=== PATIENT | male | born 1940 | race Caucasian/White ===

== ENCOUNTER → 2017-07-18 10:55 | Outpatient (CLI) | payer MEDICARE, SELFPAY ==
[2017-07-18 12:55] LABS: ALB/GLOB Ratio 1.2 RATIO (0.9-2.4); AST(SGOT) 17 U/L (15-37); Alanine Aminotransfer ALT/SGPT 20 U/L (16-61); Albumin, Serum 3.8 g/dL (3.2-5.0); Alkaline Phosphatase 67 U/L (45-117); Anion Gap 8 (5-15); BUN 17 mg/dL (7-18); BUN/Creat Ratio 15.3 RATIO (10-20); Calcium,Total 8.7 mg/dL (8.5-10.1); Chloride 103 mmol/L (98-107); Cholesterol 168 mg/dL (200); Creatinine, Serum 1.11 mg/dL (0.70-1.30); EST Glomerular Filtration Rate 68 mL/min (>60); Est Glom Filt Rate - Afr Amer 83 mL/min (>60); Globulin 3.3 g/dL (2.2-4.2); Glucose 126 mg/dL (74-106); High Density Lipoprotein 67 mg/dL; Protein, Total 7.1 g/dL (6.4-8.2); Sodium Level 139 mmol/L (136-145); Thyroid Stim Hormone (TSH) 1.42 uIU/mL (0.358-3.74); Triglycerides 103 mg/dL; Very Low Density Lipoprotein 21 mg/dL (5-40)
== END ==
PROVIDERS: Family Provider Family Medicine; PCP Family Medicine; Visit Provider Family Medicine
DX: E11.9 Type 2 diabetes mellitus without complications (principal)
CPT/HCPCS: 36415; 80053; 80061; 84403; 84443

== ENCOUNTER → 2017-12-01 15:59 | Outpatient (CLI) | payer MEDICARE, SELFPAY ==
[2017-12-01 16:58] LABS: Absolute Lymphocyte Count 1.46 X10^3/ul (0.83-4.51); Absolute Neutrophil Count 5.5 X10^3/uL (2.0-7.7); Basophil# 0.03 X10^3/uL; Basophil% 0.4 % (0-1); Eosinophil# 0.07 X10^3/uL; Eosinophils% 0.9 % (0-5); Hematocrit 42.6 % (40-54); Lymphocyte # 1.46 X10^3/ul (4.0); Lymphocyte % 18.6 % (19-41); Mean Corp Hgb Conc 32.9 g/gl (32-36); Mean Corpuscular Hgb 31.4 pg (27.0-32.0); Mean Corpuscular Volume 95.5 fL (80-94); Monocyte# 0.72 X10^3/uL; Monocyte% 9.2 % (0-10); Neutrophil # 5.54 X10^3/uL (2.7-7.7); Neutrophil % 70.4 % (47-70); Platelet Count 175 K/mm3 (150-450); RBC Distribution Width CV 12.9 % (11.6-14.6); Red Blood Count 4.46 M/mm3 (4.6-6.2); White Blood Count 7.9 K/mm3 (4.4-11.0)
[2017-12-01 17:01] LABS: POSITIVE COUNT NO; POSITIVE DIFFERENTIAL NO; POSITIVE MORPHOLOGY NO
[2017-12-01 17:02] LABS: Anion Gap 7 (5-15); BUN 18 mg/dL (7-18); Calcium,Total 8.7 mg/dL (8.5-10.1); Chloride 105 mmol/L (98-107); EST Glomerular Filtration Rate 62 mL/min (>60); Est Glom Filt Rate - Afr Amer 75 mL/min (>60); Glucose 167 mg/dL (74-106); Potassium 4.6 mmol/L (3.5-5.1); Sodium Level 141 mmol/L (136-145)
== END ==
PROVIDERS: Family Provider Family Medicine; PCP Family Medicine; Visit Provider Family Medicine
DX: K57.92 Diverticulitis of intestine, part unspecified, without perforation or abscess without bleeding (principal)
CPT/HCPCS: 36415; 80048; 85025

== ENCOUNTER → 2017-12-01 16:15 | Outpatient (CLI) | payer MEDICARE, SELFPAY ==
--- NOTE | 2017-12-01 16:34 | CT_ITS ---
STUDY: CT ABDOMEN WITH CONTRAST REASON FOR EXAM: Male, 77 years old. Diverticulitis with abdominal pain x2 weeks RADIATION DOSAGE (If Supplied By Facility): CTDIvol = ( 15.43 ) mGy, DLP = ( 552.29 ) mGycm TECHNIQUE: Transaxial images were obtained post I.V. administration of 100 ml of Isovue 300 contrast, and with oral contrast. Sagittal and coronal images were reconstructed. Individualized dose optimization techniques were used for this CT. COMPARISON: None. FINDINGS: The visualized lung bases are unremarkable. The visualized portions of the heart are within normal limits. Normal liver. There are multiple gallstones. Normal spleen. Normal pancreas. Normal bilateral adrenal glands. Normal right kidney. Normal left kidney. Normal visualized stomach. Normal small intestine. Severe diverticulosis is noted however, there appears to be an area of acute diverticulitis with questionable focal/local perforation. No definitive abscess at this time. This is noted within the sigmoid colon. There is non-visualization of the appendix. There is diffuse atherosclerotic calcification of the abdominal aorta, without a demonstrated aneurysm. Normal inferior vena cava. Normal retroperitoneum. Markedly enlarged prostate. Normal abdominal wall. There are diffuse degenerative changes of the visualized lumbar spine. CT/Abdomen/Pelvis WITH Contrast IMPRESSION: Sigmoid diverticulitis with questionable focal perforation. No evidence of abscess. Otherwise, severe colonic diverticulosis is noted Electronically Signed: Levy Morillo DO at 18:58 EDT Tel , Service support ,
== END ==
PROVIDERS: Family Provider Family Medicine; PCP Family Medicine; Visit Provider Family Medicine
DX: K57.92 Diverticulitis of intestine, part unspecified, without perforation or abscess without bleeding (principal)
CPT/HCPCS: 36415; 74177; 80048; 85025; Q9967

== ENCOUNTER 2018-05-16 04:57 | Emergency (ER) | payer MEDICARE, SELFPAY ==
[2018-05-16 04:58] VITALS: BP 214/98; PULSE 56; PULSE 57; RESP 18; RESP 20; TEMP 36.7; O2SAT 98; BMI 24.2
--- NOTE | 2018-05-16 05:06 | ED.RN ---
rn called for ekg, no old ekgs in [facility]
--- NOTE | 2018-05-16 05:09 | RAD_ITS ---
HISTORY: CHEST PAIN EXAM: XR Chest 1 View: COMPARISON: CT abdomen and pelvis 12/01/2017 FINDINGS: EKG leads in place. Right postthoracotomy changes with right midlung tiny anastomotic marly and ipsilateral volume loss with mild elevation of the right hemidiaphragm. Right chest wall deformity, most likely postsurgical. With comparison to previous CT exam, elevation of the right hemidiaphragm is chronic. Normal heart size. No acute infiltrate seen. No vascular congestion or pleural effusion. No pneumothorax. RAD/Chest 1 View (Portable) IMPRESSION: 1. No pneumonia or acute disease identified. 2. Right postthoracotomy changes. Please correlate clinically. at 0640 Reported and signed by: Sal Barreto MD Electronically Signed: Sal Barreto, at 6:39 EST Tel , Service support ,
--- NOTE | 2018-05-16 05:09 | EKG12_ITS ---
Test Reason : GENERAL ILLNESS Blood Pressure : / mmHG Vent. Rate : 056 BPM Atrial Rate : 056 BPM P-R Int : 184 ms QRS Dur : 092 ms QT Int : 426 ms P-R-T Axes : 040 023 049 degrees QTc Int : 411 ms Sinus bradycardia Confirmed by EBONY ZAVALA, KAREY ([id number]), make up editor KAMINI VALLES ([id number] on 05/19/2018 3:31:59 PM Referred By: LORENA Confirmed By:KAREY BECK MD
--- NOTE | 2018-05-16 05:16 | ED.VISSUMM ---
- ER Visit Summary Date of Service: 05/16/18 Chief Complaint: Abdominal pain, nausea History of Present Illness: The patient is a 78 M with a 4-5-hour history of upper abdominal pain and nausea. He states the pain radiated around his sides it is now mostly in his back. He does report nausea but no vomiting. No diarrhea. He denies radiation of pain to his legs. He did take Pepto, famotidine, and ibuprofen prior to arrival. He denies fever but has had some chills this evening. Physical Examination: Blood pressure is 214/98, temperature 98.1, heart rate 56, respiratory rate 20, pulse ox 98% on room air. Patient sitting upright in bed no acute distress. Head neck examination is unremarkable. Heart is bradycardic and regular. Lungs sounds are clear. Abdomen is soft with no reproducible tenderness to palpation. Active bowel sounds are noted. Back examination was no reproducible tenderness. Extremity examination reveals equal pulses throughout. Test Results: EKG is sinus bradycardia 56 bpm with no sign of acute ischemia. Portable chest x-ray per my read reveals no acute findings. CBC reveals a white count of 13.4 with 86% neutrophils. Chemistry studies significant only for glucose of 229. LFTs and lipase normal. Troponin negative. D-dimer normal at 0.39. Emergency Department Course and Treatment: Patient was given morphine, Zofran, and IV fluids. On repeat evaluation pain is improved and he complains of only minimal back pain. CTA of the chest abdomen and pelvis was obtained. On my review it does appear the patient has multiple gallstones. Final report will be signed out to oncoming physician. Treatment Plan: [] Disposition: Pending CTA results Impression: Abdominal pain, improved This note was generated with [employer] dictation software. It may contain incorrect words, spelling, and punctuation that were not noted in review of the chart prior to signing ED Disposition - Plan for ED Patient: Chief Complaint: General Illness Referrals: Gino Contreras MD [Primary Care Provider] -
[2018-05-16] MEDS: Ondansetron 4 MG/2 ML Vial IV (05:30)
[2018-05-16] MEDS: Morphine 4 MG/ML Syringe IV (05:31)
[2018-05-16] MEDS: 0.9% Normal Saline 1,000 ML 15 ML IV (05:32)
[2018-05-16 05:40] LABS: Absolute Lymphocyte Count 1.24 X10^3/ul (0.83-4.51); Absolute Neutrophil Count 11.5 X10^3/uL (2.0-7.7); Basophil# 0.02 X10^3/uL; Basophil% 0.1 % (0-1); Eosinophil# 0.03 X10^3/uL; Eosinophils% 0.2 % (0-5); Hematocrit 43.3 % (40-54); Hemoglobin 14.5 g/dl (13.0-16.5); Lymphocyte # 1.24 X10^3/ul (4.0); Lymphocyte % 9.2 % (19-41); Mean Corp Hgb Conc 33.5 g/gl (32-36); Mean Corpuscular Hgb 31.5 pg (27.0-32.0); Mean Corpuscular Volume 94.1 fL (80-94); Mean Platelet Vol. 10.6 fl (6.2-12.0); Monocyte# 0.65 X10^3/uL; Monocyte% 4.8 % (0-10); Neutrophil # 11.46 X10^3/uL (2.7-7.7); Neutrophil % 85.6 % (47-70); POSITIVE COUNT NO; POSITIVE DIFFERENTIAL NO; POSITIVE MORPHOLOGY NO; Platelet Count 169 K/mm3 (150-450); RBC Distribution Width CV 12.4 % (11.6-14.6); RBC Distribution Width SD 42.3 fl (35.1-43.9); White Blood Count 13.4 K/mm3 (4.4-11.0)
[2018-05-16 06:06] LABS: D-Dimer Quantitative (DVT/PE) 0.39 FEU/ug/m (0.27-0.49)
[2018-05-16 06:14] LABS: AST(SGOT) 18 U/L (15-37); Alanine Aminotransfer ALT/SGPT 31 U/L (16-61); Alkaline Phosphatase 75 U/L (45-117); Anion Gap 11 (5-15); BUN 16 mg/dL (7-18); BUN/Creat Ratio 12.9 RATIO (10-20); Bilirubin, Direct 0.24 mg/dL (0.00-0.30); Calcium,Total 8.9 mg/dL (8.5-10.1); Chloride 102 mmol/L (98-107); Creatinine, Serum 1.24 mg/dL (0.70-1.30); EST Glomerular Filtration Rate 60 mL/min (>60); Est Glom Filt Rate - Afr Amer 72 mL/min (>60); Globulin 3.3 g/dL (2.2-4.2); Glucose 229 mg/dL (74-106); Lipase 363 U/L (73-393); Potassium 4.2 mmol/L (3.5-5.1); Protein, Total 7.3 g/dL (6.4-8.2); Sodium Level 141 mmol/L (136-145)
--- NOTE | 2018-05-16 06:29 | CT_ITS ---
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 A radiation dose optimization technique was used for this scan. IV Contrast dosage and agent: 100 cc Isovue-370 contrast Oral contrast: None. COMPARISON: 12/01/2017 FINDINGS: The gallbladder is overdistended and hydropic in appearance measuring 4.5 cm in diameter and shows numerous internal stones. No pericholecystic inflammatory changes identified and no biliary dilatation seen. CTA technique performed. The abdominal aorta is atherosclerotic and normal in caliber. Wide patency of the celiac, SMA and LORENA. Bilateral single renal arteries which are widely patent. The major abdominal organs were not specifically evaluated utilizing CTA technique. Allowing for this, the liver, spleen, and pancreas show no CT abnormality. The adrenal glands show no suspicious enlargement. No ascites or retroperitoneal lymphadenopathy. Bilateral renal excretion of contrast without hydronephrosis or suspicious renal lesion. Left renal parapelvic cysts. GI tract: No obstruction. Diverticulosis coli. Constipation. Pelvis: Moderate prostatic enlargement with the prostate gland measuring 5.[address]/CT ANGIO ABD&PEL W/O&W/DYE IMPRESSION: 1. Atherosclerotic abdominal aorta without aneurysm. No suspicious vessel occlusion. 2. Overdistended hydropic gallbladder with numerous gallstones. No biliary dilatation seen. Gallbladder distention is increased compared to the November 2017 exam. 3. Constipation pattern. Diverticulosis coli. 4. Moderate prostatic enlargement. Left renal parapelvic cysts. Individualized dose optimization techniques were used for this CT. at 0812 Reported and signed by: Sal Barreto MD N.B. : The above information has been verbally conveyed by Sal Barreto to SHRADDHA Marinelli, on 05/16/2018 08:22:16 (ET). Electronically Signed: Sal Barreto, at 8:11 EST Tel , Service support ,
--- NOTE | 2018-05-16 06:29 | CT_ITS ---
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 A radiation dose optimization technique was used for this scan. IV Contrast dosage and agent: 100 cc Isovue 370 contrast COMPARISON: Chest x-ray 05/16/2018 FINDINGS: The main, segmental, and visualized subsegmental pulmonary arteries show normal opacification and appearance. No PE. Thoracic aorta is normal in caliber without aneurysm or dissection. No pericardial effusion. Right mid lung postthoracotomy changes with tiny surgical anastomotic marly and ipsilateral volume loss. Chronic scarring with focal bronchiectasis within the right middle lobe. The lingular segment shows similar but smaller focal scarring with mild bronchiectasis. No central obstructing lesion seen. Mediastinal and right hilar calcified lymph nodes. No suspicious lymph node enlargement seen. No suspicious pulmonary lesion identified. No pleural effusion. Within the upper abdomen, overdistended gallbladder with numerous gallstones. Gallbladder measures 4.[address]/CTA Chest W/WO Contrast IMPRESSION: 1. No PE or thoracic aortic aneurysm. No acute chest disease. 2. Right postthoracotomy changes with ipsilateral volume loss. 3. Right middle lobe and lingular segment chronic appearing scarring with bronchiectasis. No suspicious lesion seen. 4. Old granulomatous disease. 5. Cholelithiasis with overdistended gallbladder. CT abdomen also to follow. Individualized dose optimization techniques were used for this CT. at 0753 Reported and signed by: Sal Barreto MD Electronically Signed: Sal Barreto, at 7:52 EST Tel , Service support ,
--- NOTE | 2018-05-16 07:09 | ED.DEP ---
ED Disposition - Plan for ED Patient: Disposition: Home or Assisted Living Chief Complaint: General Illness Instructions: ED Abdominal Pain Gallstone Poss Prescriptions: Ondansetron [Zofran Odt] 4 mg PO Q8H PRN PRN #10 tablet PRN Reason: Nausea Referrals: Gino Contreras MD [Primary Care Provider] - As Needed
--- NOTE | 2018-05-16 08:57 | ED.VISSUMM ---
- ER Visit Summary Date of Service: 05/16/18 Chief Complaint: [Addendum to initial dictation by Dr. Wheat] History of Present Illness: The patient is a 78 M [presented to the emergency department with pain in his abdomen and back. Care of patient turned over to me awaiting results of CAT scan chest and CAT scan abdomen and pelvis with IV contrast. Patient's CT chest showed no evidence of PE or dissection. Patient CT scan of the abdomen pelvis showed gallstones with hydrops of the gallbladder measuring 4.5 cm. Radiologist thought there might be some pericholecystic edema as well and could not rule out cholecystitis. On my examination patient really not having any pain on palpation of the right upper quadrant has a negative García sign. I did discuss case with Dr. Dyllan Chacko who is the surgeon on-call today. Patient was evaluated in the emergency department by Dr. Chacko. Patient at this point does not want to be admitted given that he is not having any abdominal pain and states that he will return back to the emergency department if the pain returns. Patient also advised to follow-up with Dr. Mckeon in the office.] Patient understands that I cannot rule out acute cholecystitis as the etiology of his pain. Patient understands that his symptoms could worsen with continued pain he could become septic from his gallbladder. Patient was offered admission by Dr. Chacko. Patient is refusing admission at this time. Physical Examination: [] Test Results: [] Emergency Department Course and Treatment: [] Treatment Plan: [] Disposition: [Discharged home in stable condition.] Impression: [Abdominal pain etiology uncertain Back pain-etiology uncertain] This note was generated with [employer] dictation software. It may contain incorrect words, spelling, and punctuation that were not noted in review of the chart prior to signing ED Disposition - Plan for ED Patient: Disposition: Home or Assisted Living Chief Complaint: General Illness Instructions: ED Abdominal Pain Gallstone Poss Prescriptions: Ondansetron [Zofran Odt] 4 mg PO Q8H PRN PRN #10 tablet PRN Reason: Nausea Referrals: Gino Contreras MD [Primary Care Provider] - As Needed
--- NOTE | 2018-05-16 09:15 | CON.PCM_ITS ---
Reason for Consult Date of Consultation: 05/16/18 History of Present Illness: The patient is a 78 year old M resulted with a complaint of severe diffuse abdominal pain. The patient ate a meal last night of potato salad and chicken. Later in the evening he noted upper abdominal pain in both his right and left upper abdomen which was relatively severe and constant in nature. As the night when he noted more pain boring through to his back. He denied true right upper quadrant pain. He denied similar episodes of pain in the past. He had a CT scan back in November which he was told he had mild diverticulitis. This demonstrated cholelithiasis that time. He presented to [facility] emergency department. He was found to have an elevated white blood cell count of 13 but otherwise normal liver enzymes. Due to the upper abdominal and pain through to his back he had a CT angiogram of the chest abdomen and pelvis. This demonstrated no true vascular abnormalities. The only abnormality that was noted were cholelithiasis and now a somewhat dilated gallbladder with questionable gallbladder wall edema. The patient received morphine in the ER. His pain resolved. He was noted not to have a García sign or true right upper quadrant tenderness by the emergency room physicians. I was consulted. Past Medical History Allergies No Known Allergies Allergy (Verified 05/16/18 05:01) Home Medications: Ambulatory Orders Medication Instructions Recorded Metoprolol Succinate [Toprol Xl] 50 mg PO DAILY 05/16/18 Ondansetron [Zofran Odt] 4 mg PO Q8H PRN PRN #10 tablet 05/16/18 Saxagliptin Hydrochloride [Onglyza] 5 mg PO DAILY 05/16/18 Simvastatin 10 mg PO QHS 05/16/18 Tadalafil [Cialis] 10 mg PO DAILY 05/16/18 Tamsulosin HCl [Flomax] 0.4 mg PO QHS 05/16/18 Surgical History: - - left lung biopsy Lives: Spouse/ Significant Other Smoking Status: Never smoker Alcohol: Rare Review of Systems Constitutional: Denies: Chills, Fever, Weight Change HEENT: Denies: Head Aches, Sinus Congestion, Sinus Drainage Cardiovascular: Denies: Chest Pain, Palpitations Respiratory: Denies: Cough, Shortness of breath at rest, Sputum production Gastrointestinal: Reports: Abdominal Pain. Denies: Nausea, Vomiting Genitourinary: Denies: Dysuria Musculoskeletal: Denies: Joint Pain, Joint Tenderness Skin: Denies: Rash, Wounds Neurological: Denies: Numbness, Tingling, Focal weakness Psychiatric: Denies: Anxiety, Depression, Homicidal Ideations, Suicidal Ideations Hematologic/ Lymphatic: Denies: Easy Bruising, Easy Bleeding - Physical Exam General: Alert, Oriented x3, Cooperative HEENT: Atraumatic, PERRLA, EOMI, Normocephalic Neck: Supple, No JVD, Negative Carotid Bruits Lungs: Clear to auscultation, Normal air movement Cardiovascular: Regular rate, No murmurs Abdomen: Bowel Sounds Present, Soft, Non Tender Extremities: No edema, Capillary Refill Less than 3 Seconds Skin: No rashes, No breakdown Musculoskeletal: No Tenderness to Palpation of Joints or Extremities Neurological: Cranial nerves II-XII grossly intact Psych/Mental Status: Normal Affect, Appropriate Vital Signs Temp Pulse Resp BP Pulse Ox 98.1 F 57 L 18 214/98 H 98 05/16/18 04:58 05/16/18 04:58 05/16/18 04:58 05/16/18 04:58 05/16/18 04:58 Oxygen Delivery Method Room Air Weight: 74.4 kg Body Mass Index (BMI) 24.2 Laboratory Tests Past 24 Hrs 05/16/18 05/16/18 05/16/18 05:10 05:10 05:10 WBC 13.4 H RBC 4.60 Hgb 14.5 Hct 43.3 MCV 94.1 H MCH 31.5 MCHC 33.5 RDW 12.4 RDW Differential 42.3 Plt Count 169 MPV 10.6 Immature Gran % (Auto) 0.100 Neut % (Auto) 85.6 H Lymph % (Auto) 9.2 L [place] % (Auto) 4.8 Eos % (Auto) 0.2 Baso % (Auto) 0.1 Absolute Neuts (auto) 11.5 H Absolute Lymphs (auto) 1.24 Total Counted Not Reportable D-Dimer Quant (PE/DVT) 0.39 Sodium 141 Potassium 4.2 Chloride 102 Carbon Dioxide 28.0 Anion Gap 11 BUN 16 Creatinine 1.24 Estim Creat Clear Calc 49.10 Est GFR (MDRD) Af Amer 72 Est GFR (MDRD) Non-Af 60 BUN/Creatinine Ratio 12.9 Glucose 229 H Calcium 8.9 Total Bilirubin 0.80 Direct Bilirubin 0.24 AST 18 ALT 31 Alkaline Phosphatase 75 Troponin I < 0.015 Total Protein 7.3 Albumin 4.0 Globulin 3.3 Lipase 363 Assessment/Plan abdominal pain, questionable biliary colic, cholelithiasis. The patient currently states he is without any pain and would like to be discharged to home. We discussed the options of admission with monitoring for recurrence of abdominal pain and rechecking his white blood cell count and laboratory studies in the morning. Again the patient preferred to be discharged home. He is instructed to return to emerge department if he has additional or recurring pain. Otherwise I plan to see my office in 2 days.
[2018-05-16 09:18] VITALS: BP 124/71; PULSE 68; RESP 15; O2SAT 98
== END 2018-05-16 09:20 | disposition home or self-care (01) ==
PROVIDERS: Emergency Provider Emergency Medicine; Family Provider Family Medicine; PCP Family Medicine
DX: R10.11 Right upper quadrant pain (principal); R10.12 Left upper quadrant pain; R11.0 Nausea; M54.9 Dorsalgia, unspecified; K80.20 Calculus of gallbladder without cholecystitis without obstruction; K82.8 Other specified diseases of gallbladder; Z87.19 Personal history of other diseases of the digestive system; Z79.899 Other long term (current) drug therapy
CPT/HCPCS: 71045; 71275; 74174; 80048; 80076; 83690; 84484; 85025; 85379; 93005; 96361; 96374; 96375; 99284; J7030; Q9967; A4216; J2405

== ENCOUNTER 2018-05-17 01:53 | Inpatient (IN) | payer MEDICARE, SELFPAY ==
[2018-05-16 04:58] VITALS: BMI 24.2
[2018-05-17] VITALS (13 sets, daily range): BP systolic 102–167; BP diastolic 52–68; PULSE 60–73; RESP 14–22; TEMP 36.5–37.8; O2SAT 91–98; BMI 24.7; BMI 23.8
[2018-05-17] MEDS: 0.9% Normal Saline 1,000 ML 150 ML IV (02:34)
[2018-05-17] MEDS: Morphine 4 MG/ML Syringe IV (02:34)
[2018-05-17] MEDS: Ondansetron 4 MG/2 ML Vial IV (02:35)
[2018-05-17 02:49] LABS: Absolute Lymphocyte Count 0.82 X10^3/ul (0.83-4.51); Absolute Neutrophil Count 15.4 X10^3/uL (2.0-7.7); Basophil# 0.02 X10^3/uL; Basophil% 0.1 % (0-1); Hematocrit 42.3 % (40-54); Hemoglobin 14.1 g/dl (13.0-16.5); Lymphocyte # 0.82 X10^3/ul (4.0); Lymphocyte % 4.5 % (19-41); Mean Corp Hgb Conc 33.3 g/gl (32-36); Mean Corpuscular Hgb 31.8 pg (27.0-32.0); Mean Corpuscular Volume 95.3 fL (80-94); Mean Platelet Vol. 10.6 fl (6.2-12.0); Monocyte# 1.75 X10^3/uL; Monocyte% 9.7 % (0-10); Neutrophil # 15.43 X10^3/uL (2.7-7.7); Neutrophil % 85.4 % (47-70); Platelet Count 155 K/mm3 (150-450); RBC Distribution Width CV 12.5 % (11.6-14.6); RBC Distribution Width SD 42.5 fl (35.1-43.9); Red Blood Count 4.44 M/mm3 (4.6-6.2); White Blood Count 18.1 K/mm3 (4.4-11.0)
[2018-05-17 02:50] LABS: Differential Indicated SCAN CRITERIA MET; POSITIVE COUNT NO; POSITIVE DIFFERENTIAL YES; POSITIVE MORPHOLOGY NO
[2018-05-17 02:59] LABS: AST(SGOT) 48 U/L (15-37); Alanine Aminotransfer ALT/SGPT 53 U/L (16-61); Albumin, Serum 3.6 g/dL (3.2-5.0); Alkaline Phosphatase 107 U/L (45-117); Anion Gap 8 (5-15); BUN 12 mg/dL (7-18); BUN/Creat Ratio 10.8 RATIO (10-20); Bilirubin, Direct 0.57 mg/dL (0.00-0.30); Calcium,Total 8.5 mg/dL (8.5-10.1); Chloride 101 mmol/L (98-107); Creatinine, Serum 1.11 mg/dL (0.70-1.30); EST Glomerular Filtration Rate 68 mL/min (>60); Est Glom Filt Rate - Afr Amer 82 mL/min (>60); Estimated Creatinine Clearance 54.85 ml/min; Globulin 3.1 g/dL (2.2-4.2); Glucose 242 mg/dL (74-106); Lipase 69 U/L (73-393); Potassium 4.4 mmol/L (3.5-5.1); Protein, Total 6.7 g/dL (6.4-8.2); Sodium Level 134 mmol/L (136-145)
--- NOTE | 2018-05-17 04:37 | ED.DCSUM_ITS ---
- ER Visit Summary Date of Service: 05/17/18 Chief Complaint: Abdominal pain History of Present Illness: The patient is a 78 M who was seen in the ED earlier yesterday for abdominal pain. He had multiple gallstones with borderline wall thickness. He was seen by Dr. Chacko and preferred discharge to home with close follow-up. Patient increased pain today and presented back to the emergency room. Past history is significant for diabetes, hypertension, high cholesterol. Physical Examination: Blood pressure is 167/60, otherwise vitals normal. Patient sitting upright in bed in no acute distress. Head neck examination is unremarkable. Heart is regular rate and rhythm. Lung sounds are clear. Abdomen is soft with tenderness in the right upper quadrant. No guarding or rebound at this time. Test Results: CBC today is 18.1 compared to a white count of 13.4 yesterday. Left shift is noted. Chemistry studies significant for glucose of 242. LFTs significant for total bili of 1.8 and a direct bili of 0.57. These values were normal yesterday. AST is mildly elevated at 48. Lipase is normal. Emergency Department Course and Treatment: Patient was given morphine, Zofran, and IV fluids. Dose of IV Zosyn was given. I spoke with Dr. Chacko who will be in to see the patient. Treatment Plan: [] Disposition: Admit Impression: Cholecystitis This note was generated with [employer] dictation software. It may contain incorrect words, spelling, and punctuation that were not noted in review of the chart prior to signing ED Disposition - Plan for ED Patient: Chief Complaint: Abd Pain Referrals: Gino Contreras MD [Primary Care Provider] -
--- NOTE | 2018-05-17 05:43 | HP.PCM_ITS ---
History of Present Illness Date of Admission: 05/17/18 The patient is a 78 year old M resulted with a complaint of severe diffuse abdom inal pain. The patient ate a meal last night of potato salad and chicken. Later in the evening he noted upper abdominal pain in both his right and left upper abdomen which was relatively severe and constant in nature. As the night when he noted more pain boring through to his back. He denied true right upper quadrant pain. He denied similar episodes of pain in the past. He had a CT scan back in November which he was told he had mild diverticulitis. This demonstrated cholelithiasis that time. He presented to [facility] emergency department. He was found to have an elevated white blood cell count of 13 but otherwise normal liver enzymes. Due to the upper abdominal and pain through to his back he had a CT angiogram of the chest abdomen and pelvis. This demonstrated no true vascular abnormalities. The only abnormality that was noted were cholelithiasis and now a somewhat dilated gallbladder with questionable gallbladder wall edema. The patient received morphine in the ER. His pain resolved. He was noted not to have a García sign or true right upper quadrant tenderness by the emergency room physicians. I was consulted. He presented to the ER yesterday but felt his pain had improved and wanted to go home. His pain worsened throughout the day and he returned, His WBC count is now 18 and his bili is mildly elevated Past Medical History Allergies No Known Allergies Allergy (Verified 05/16/18 05:01) Home Medications: Ambulatory Orders Medication Instructions Recorded Metoprolol Succinate [Toprol Xl] 50 mg PO DAILY 05/16/18 Saxagliptin Hydrochloride [Onglyza] 5 mg PO DAILY 05/16/18 Simvastatin 10 mg PO QHS 05/16/18 Tadalafil [Cialis] 10 mg PO DAILY 05/16/18 Tamsulosin HCl [Flomax] 0.4 mg PO QHS 05/16/18 Surgical History: - - left lung biopsy Smoking Status: Never smoker Review of Systems Constitutional: Denies: Chills, Fever, Weight Change HEENT: Denies: Head Aches, Sinus Congestion, Sinus Drainage Cardiovascular: Denies: Chest Pain, Palpitations Respiratory: Denies: Cough, Shortness of breath at rest, Sputum production Gastrointestinal: Reports: Abdominal Pain. Denies: Nausea, Vomiting Genitourinary: Denies: Dysuria Musculoskeletal: Denies: Joint Pain, Joint Tenderness Skin: Denies: Rash, Wounds Neurological: Denies: Numbness, Tingling, Focal weakness Psychiatric: Denies: Anxiety, Depression, Homicidal Ideations, Suicidal Ideations Hematologic/ Lymphatic: Denies: Easy Bruising, Easy Bleeding VTE Information - Inpt Only VTE Present on Admission: No VTE Mechan Device Prophylaxis: SCD's VTE Pharm Prophylaxis ordered?: No - Physical Exam General: Alert, Oriented x3, Cooperative Lungs: Clear to auscultation, Normal air movement Cardiovascular: Regular rate, No murmurs Abdomen: Bowel Sounds Present, Soft, Tender - RUQ, + garcía's sign Vital Signs Temp Pulse Resp BP Pulse Ox 97.8 F 65 18 139/59 H 93 05/17/18 01:54 05/17/18 04:15 05/17/18 04:15 05/17/18 04:15 05/17/18 04:15 Oxygen Delivery Method Room Air Weight: 75.9 kg Body Mass Index (BMI) 24.7 Laboratory Tests Past 24 Hrs 05/17/18 05/17/18 02:30 02:30 WBC 18.1 H RBC 4.44 L Hgb 14.1 Hct 42.3 MCV 95.3 H MCH 31.8 MCHC 33.3 RDW 12.5 RDW Differential 42.5 Plt Count 155 MPV 10.6 Immature Gran % (Auto) 0.300 Neut % (Auto) 85.4 H Lymph % (Auto) 4.5 L [place] % (Auto) 9.7 Eos % (Auto) 0.0 Baso % (Auto) 0.1 Absolute Neuts (auto) 15.4 H Absolute Lymphs (auto) 0.82 L Total Counted Not Reportable Diff Path Review May foll Sodium 134 L Potassium 4.4 Chloride 101 Carbon Dioxide 25.0 Anion Gap 8 BUN 12 Creatinine 1.11 Estim Creat Clear Calc 54.85 Est GFR (MDRD) Af Amer 82 Est GFR (MDRD) Non-Af 68 BUN/Creatinine Ratio 10.8 Glucose 242 H Calcium 8.5 Total Bilirubin 1.80 H Direct Bilirubin 0.57 H AST 48 H ALT 53 Alkaline Phosphatase 107 Total Protein 6.7 Albumin 3.6 Globulin 3.1 Lipase 69 L Assessment/Plan cholecystitis I will admit. NPO, IV fluids, Zosyn. I plan to perform a laparoscopic cholecystectomy with intraoperative choleangiogram. The risks, benefits, possible complications and alternatives were discussed. The patient consents to the surgical procedure.
[2018-05-17] MEDS: Lactated Ringers 1,000 ML 100 ML IV ×3 (06:55→18:46)
[2018-05-17] MEDS: Morphine 2 MG/ML Syringe IV ×2 (06:55→13:39)
[2018-05-17 07:36] LABS: Bedside Glucose 210 mg/dL (70-110)
--- NOTE | 2018-05-17 07:44 | EKG12_ITS ---
Test Reason : PREOP Blood Pressure : / mmHG Vent. Rate : 061 BPM Atrial Rate : 061 BPM P-R Int : 176 ms QRS Dur : 088 ms QT Int : 404 ms P-R-T Axes : 026 -05 003 degrees QTc Int : 406 ms Normal sinus rhythm Confirmed by EBONY ZAVALA, KAREY ([id number]), metropolitan editor KAMINI VALLES ([id number]) on 05/19/2018 3:43:46 PM Referred By: FRANCISCA Confirmed By:KAREY BECK MD
[2018-05-17 08:37] LABS: Hemoglobin A1c 7.7 % (4.2-6.3)
[2018-05-17 12:25] LABS: Bedside Glucose 197 mg/dL (70-110)
[2018-05-17] MEDS: Piperacil/Tazobactam 3.375 GM/50 ML ML IV ×2 (13:35→22:06)
[2018-05-17] MEDS: 0.9% NaCl Peripheral Flush Adult/Peds IV (13:35)
--- NOTE | 2018-05-17 14:46 | NURSING ---
pt transported down to at this time, report called to LUKE Alvarez
--- NOTE | 2018-05-17 15:05 | GALL_PTH ---
PATIENT: EDEL ISAAC LOC: MS3 U#:[id number] AGE/SX: 78/M ROOM: [facility] [place]17/[address]: Dr. Omkar Cee MD : [id number] BED: 1 DIS: 05/20/2018 SPEC #: [id number] RECD: 05/18/18 11:31 STATUS: NIGEL PIKE #: [id number] DAMIAN: 05/17/18 15:[address]: Dyllan Mckeon DEPT: SURGICAL PATHOLOGY RECD BY: Dyllan Butterfield ENTERED: 05/18/18 11:51 SP TYPE: DENISE HOUGH DR: Dr. Tyree Contreras MD Tissues: Gallbladder, NOS Procedures: Surgery Specimen Level III HEADER OPERATION: Laparoscopic cholecystectomy PRE-OP DIAGNOSIS: Acute cholecystitis TISSUE SUBMITTED: Gallbladder MICROSCOPIC DIAGNOSIS Gallbladder, cholecystectomy: Acute and chronic cholecystitis with mucosal ulceration and cholelithiasis. AM:moiz 05/19/18 MICROSCOPIC DESCRIPTION Slides are reviewed. GROSS DESCRIPTION Received is one container labeled with the patient's name and designated gallbladder. The specimen consists of a gallbladder measuring 1.2 x 5.3 x 3.6 cm. The external surface is smooth and glistening. Focally, it is granular, hemorrhagic and contains cautery artifact. The lumen of the gallbladder contains green mucoid bile and multiple black calculi ranging in size <0.1 to 1.2. The mucosa is bile-stained and without any mass lesions. The gallbladder wall averages 0.4 cm in thickness and is free of mass lesions. Cable Splicing Technician sections of the gallbladder and the cystic duct are submitted in one cassette. / AM:moiz 05/18/18 TC:2 [facility]: [id number]
[2018-05-17] MEDS: Bupivacaine 0.5% PF 10 ML VIAL (17:40)
--- NOTE | 2018-05-17 17:45 | OP.PCM_ITS ---
Report of Operation Date of Procedure: 05/17/18 Pre-Operative Diagnosis: acute cholycystitis Post-Operative Diagnosis: acute cholycystitis Surgery/Procedure Performed:: laparoscopic cholecystectomy oil well service operator helper: None oil well service operator helper: Heather Choi oil well service operator helper: Sandi Martell Type of Anesthesia:: General Anesthesiologist: Dwain Elaine - ASA2 Specimen's removed: gallbladder Estimated Blood Loss (mL): 50 Fluids Replaced: 700 Description of Procedure: The patient was brought to the operating suite. Sign in was performed verifying patient, site, position, patient was receiving Zosyn for presumed acute cholecystitis clinically. and DVT prophylaxis with SCDs. Following induction of general anesthetic. The patient?s abdomen was prepped and draped in the usual fashion. Timeout was performed verifying patient, site, position. Local anesthetic was injected below the umbilicus. Incision made and dissection carried down to the umbilical root fascia. 2 stay sutures were placed. Incision made in the fascia, the peritoneum entered under direct visualization. A 10 mm Murillo trocar was inserted and secured with the stay sutures. Pneumoperitoneum to 15 mmHg was insufflated. Visual inspection revealed acute adhesions to the gallbladder and a grossly distended gallbladder which appeared pale dusky and had some patchy areas of early duskiness consistent with advanced acute cholecystitis. 3 right upper quadrant 5 ports were placed in the standard position. the gallbladder had to be aspirated with an aspirating needle to allow it to be grasped. The gallbladder was grasped retracted upward and outward. Dissection was carried out in Calot?s triangle. When a critical view of the neck of the gallbladder funneling of the cystic duct with no signs of aberrant ductal structures were seen, a clip was placed on the neck of the gallbladder cystic duct junction. A partial ductotomy was made. No bile return from the partial ductotomy so intraoperative glandular gram was aborted. 2 clips placed on the cystic duct and the cystic duct divided. Dissection was continued until the cystic artery was clearly dissected and identified. The artery was then doubly clipped proximally singly clipped distally and divided. The gallbladder was then dissected free from the gallbladder fossa using electrocautery. the gallbladder dissection plane was acutely inflamed with significant edema and areas of duskiness consistent with advanced cholecystitis. The gallbladder was placed in an Endobag and removed through the umbilical port site, which had to be increased in size to remove the gallbladder. 2 - 0 PDS [id number] suture was placed around the umbilical port site defect. Pneumoperitoneum was reestablished. The gallbladder fossa was checked for hemostasis. With good hemostasis, the area was irrigated and aspirated to clear. 5mm ports were removed under direct visualization with no signs of bleeding. Pneumoperitoneum was released. The Murillo trocar was removed. The umbilical fascial suture was secured area did skin was closed with interrupted 4-0 Monocryl subcuticular sutures. Steri-Strips and bandages were applied. The patient was brought to recovery room in stable condition. - Admit VTE Documentation VTE Present on Admission: No VTE Mechan Device Prophylaxis: SCD's
[2018-05-17 18:15] LABS: Bedside Glucose 220 mg/dL (70-110)
[2018-05-17] MEDS: Metoprolol(XL)Succ 50 MG Tablet PO (21:59)
[2018-05-17] MEDS: Tamsulosin HCl 0.4 MG Capsule PO (22:00)
[2018-05-17] MEDS: Atorvastatin Calcium 10 MG Tablet 5 MG PO (22:00)
[2018-05-17 23:31] LABS: Bedside Glucose 197 mg/dL (70-110)
[2018-05-18] MEDS: Morphine 2 MG/ML Syringe IV ×5 (00:06→23:48)
[2018-05-18] MEDS: Insulin Lispro 100 UNIT/ML INSULN.PEN SC (01:17)
[2018-05-18 05:18] VITALS: BP 135/62; PULSE 63; RESP 14; TEMP 36.8; O2SAT 94
[2018-05-18] MEDS: Piperacil/Tazobactam 3.375 GM/50 ML ML IV ×3 (05:27→23:12)
[2018-05-18 06:18] LABS: ALB/GLOB Ratio 0.9 RATIO (0.9-2.4); AST(SGOT) 37 U/L (15-37); Alanine Aminotransfer ALT/SGPT 52 U/L (16-61); Albumin, Serum 3.1 g/dL (3.2-5.0); Alkaline Phosphatase 113 U/L (45-117); Anion Gap 8 (5-15); BUN 18 mg/dL (7-18); BUN/Creat Ratio 12.8 RATIO (10-20); Calcium,Total 8.6 mg/dL (8.5-10.1); Chloride 101 mmol/L (98-107); Creatinine, Serum 1.41 mg/dL (0.70-1.30); EST Glomerular Filtration Rate 52 mL/min (>60); Est Glom Filt Rate - Afr Amer 63 mL/min (>60); Estimated Creatinine Clearance 43.18 ml/min; Globulin 3.6 g/dL (2.2-4.2); Glucose 159 mg/dL (74-106); Protein, Total 6.7 g/dL (6.4-8.2); Sodium Level 136 mmol/L (136-145)
[2018-05-18 06:31] LABS: Bedside Glucose 165 mg/dL (70-110)
[2018-05-18 06:49] LABS: Hematocrit 41.8 % (40-54); Hemoglobin 13.6 g/dl (13.0-16.5); Mean Corp Hgb Conc 32.5 g/gl (32-36); Mean Corpuscular Hgb 32.2 pg (27.0-32.0); Mean Corpuscular Volume 98.8 fL (80-94); Platelet Count 156 K/mm3 (150-450); RBC Distribution Width CV 12.9 % (11.6-14.6); RBC Distribution Width SD 45.7 fl (35.1-43.9); Red Blood Count 4.23 M/mm3 (4.6-6.2); White Blood Count 20.8 K/mm3 (4.4-11.0)
[2018-05-18 06:53] LABS: Scan Indicated on CBC? Y/N NO
[2018-05-18 07:14] VITALS: O2SAT 93
--- NOTE | 2018-05-18 08:30 | RAD_ITS ---
STUDY: X-RAY CHEST REASON FOR EXAM: Male, 78 years old. TECHNIQUE: COMPARISON: May 16, 2018 FINDINGS: The heart is not enlarged there is still elevation of the right hemidiaphragm. There is Limited infiltrate and/or atelectasis seen in the left base with some linear atelectasis in the right midlung field. There is blunting of the costophrenic angles bilaterally. The apices are clear. The trachea is in the midline. The bony thorax is intact RAD/Chest PA and Lateral IMPRESSION: Limited infiltrate and atelectasis involving the left base and pleural effusion of minimal degree seen bilaterally. Postop changes seen in the right lung. . Electronically Signed: Judah Hwang, at 9:17 EST Tel , Service support ,
[2018-05-18 08:32] VITALS: BP 130/54; PULSE 60; RESP 18; TEMP 36.6; O2SAT 94
[2018-05-18] MEDS: Lactated Ringers 1,000 ML 100 ML IV ×2 (09:21→19:21)
[2018-05-18] MEDS: LINAGLIPTIN 5 MG TABLET PO ×2 (09:21→09:27)
[2018-05-18 11:31] LABS: Bedside Glucose 146 mg/dL (70-110)
--- NOTE | 2018-05-18 11:56 | PN.SURG_ITS ---
Subjective: incisional pain, - Physical Exam General: Alert, Oriented x3 Lungs: Diminished, - - few coarse breath sounds and wheezes Cardiovascular: Regular rate, Regular Rhythm Abdomen: Bowel Sounds Present, Soft, Tender - at incisions and mildly throughout Vital Signs Temp Pulse Resp BP Pulse Ox 97.8 F 60 18 130/54 H 94 05/18/18 08:32 05/18/18 08:32 05/18/18 08:32 05/18/18 08:32 05/18/18 08:32 Oxygen Flow Rate (L/min) 3 Oxygen Delivery Method Nasal Cannula Weight: 73 kg Body Mass Index (BMI) 23.8 Finger Stick Blood Glucose 220 Intake and Output for Last 24 Hours 05/16/18 05/17/18 05/18/18 23:59 23:59 23:59 Intake Total 2532 / 2532 1695 / 1695 Output Total 2039 / 2039 Balance 2532 / 2532 -345 / -345 Laboratory Tests Past 24 Hrs 05/18/18 05/18/18 05:30 05:30 WBC 20.8 H RBC 4.23 L Hgb 13.6 Hct 41.8 MCV 98.8 H MCH 32.2 H MCHC 32.5 RDW 12.9 RDW Differential 45.7 H Plt Count 156 MPV 11.0 Sodium 136 Potassium 4.0 Chloride 101 Carbon Dioxide 27.0 Anion Gap 8 BUN 18 Creatinine 1.41 H Estim Creat Clear Calc 43.18 Est GFR (MDRD) Af Amer 63 Est GFR (MDRD) Non-Af 52 L BUN/Creatinine Ratio 12.8 Glucose 159 H Calcium 8.6 Total Bilirubin 3.10 H AST 37 ALT 52 Alkaline Phosphatase 113 Total Protein 6.7 Albumin 3.1 L Globulin 3.6 Albumin/Globulin Ratio 0.9 POC Glucose 05/18/18 05/18/18 05/17/18 11:21 05:39 22:11 POC Glucose 146 H 165 H 197 H 05/17/18 05/17/18 18:10 12:10 POC Glucose 220 H 197 H Medical Necessity - Tobacco Use Smoking Status: Never smoker Assessment/Plan acute cholecystitis bordering on hydrops, gangrenous cholecystitis patient with increasingly elevated white blood cell count today and slightly increasing bilirubin with normal transaminases. We will continue IV antibiotics and repeat laboratory studies in the morning. no intraoperative clamps gram was obtained due to the degree of inflammation. If patient's bilirubin increases would consider HIDA scan or consideration for ERCP/MRCP Poor respiratory effort. Chest x-ray demonstrates some bilateral atelectasis. We will plan for increased pulmonary toilet, incentive spirometry use, and nebulizers to see if this improves his pulmonary toilet. History of diabetes-blood sugars in the 160-220 range. Currently on sliding sc kirit. Somewhat hypoactive bowel sounds. Given the degree of inflammation of the transverse colon and duodenal area from the inflammatory cholecystitis, would not be surprised if patient had a mild ileus-type picture. We will maintain clear liquids without advancing for the near being. patient required straight catheter 2 times for voiding. We'll plan to place Ross catheter of steak catheter required again.
[2018-05-18 14:03] VITALS: BP 153/64; PULSE 66; RESP 18; TEMP 36.7; O2SAT 95
[2018-05-18 14:19] LABS: Pathologist Review Reviewed
[2018-05-18] MEDS: 0.9% NaCl Peripheral Flush Adult/Peds IV ×3 (14:34→23:47)
[2018-05-18 17:46] LABS: Bedside Glucose 141 mg/dL (70-110)
[2018-05-18 20:09] VITALS: BP 175/72; PULSE 74; RESP 20; TEMP 36.9; O2SAT 97
[2018-05-18] MEDS: Atorvastatin Calcium 10 MG Tablet 5 MG PO (20:26)
[2018-05-18 20:27] VITALS: BP 175/72; PULSE 74
[2018-05-18] MEDS: Metoprolol(XL)Succ 50 MG Tablet PO (20:27)
[2018-05-18] MEDS: Tamsulosin HCl 0.4 MG Capsule PO (23:11)
[2018-05-18 23:35] LABS: Bedside Glucose 127 mg/dL (70-110)
[2018-05-19] VITALS (11 sets, daily range): BP systolic 132–190; BP diastolic 57–85; PULSE 60–79; RESP 18–20; TEMP 36.8–37; O2SAT 93–97
[2018-05-19] MEDS: Ondansetron 4 MG/2 ML Vial IV ×2 (04:48→12:36)
[2018-05-19] MEDS: Lactated Ringers 1,000 ML 100 ML IV (04:52)
[2018-05-19] MEDS: hydrALAZINE 20 MG/ML Vial 10 MG IV (05:19)
[2018-05-19] MEDS: 0.9% NaCl Peripheral Flush Adult/Peds IV ×3 (05:22→12:38)
--- NOTE | 2018-05-19 05:47 | NURSING ---
cargo supervisor taking pt off floor for CXR
--- NOTE | 2018-05-19 06:00 | RAD_ITS ---
HISTORY: SOB EXAM: XR Chest 2 Views: COMPARISON: 05/18/2018 FINDINGS: Small bilateral pleural effusions, larger on the right without change compared to 05/18/2018 and new compared to 05/16/2018. Bibasilar edema or infiltrates unchanged compared to 05/18/2018 and new compared to 05/16/2018. Right postthoracotomy changes with ipsilateral volume loss. Normal heart size. No pneumothorax. RAD/Chest PA and Lateral IMPRESSION: 1. Persistent small bilateral pleural effusions, larger on the right, together with by basilar infiltrates or edema without significant change compared to the most recent exam. 2. Bilateral effusions and bibasilar infiltrates/edema are new compared to the 05/16/2018 exam. at 0630 Reported and signed by: Sal Barreto MD Electronically Signed: Sal Barreto, at 6:28 EST Tel , Service support ,
--- NOTE | 2018-05-19 06:11 | NURSING ---
Pt back to floor from geetha, Dr. Mckeon in room.
[2018-05-19] MEDS: Piperacil/Tazobactam 3.375 GM/50 ML ML IV ×3 (06:39→21:15)
--- NOTE | 2018-05-19 06:45 | PCM.PN.HOSP ---
Subjective: Internal medicine consult note Patient is a 78-year-old male with a significant history of hypertension; diabetes mellitus; hyperlipidemia and erectile dysfunction who presented at the emergency department on 05/17/2018 because of abdominal pain and was diagnosed with cholecystitis for which he had a cholecystectomy on same day and now with uncontrolled blood pressure for which reason general surgery consulted internal medicine service for management. At home patient takes metoprolol 50 mg p.o. nightly. Patient reported that at home his systolic blood pressure range from 120-140. And his diastolic blood pressure went from 55-75. At the time of evaluation patient reported feeling lousy. Earlier on nurse had requested antianxiety medication to make patient more relax since patient appeared to feel uneasy. Further patient's nurse reported that patient has shortness of breath with exertion. She reported that on 2 L when patient ambulate his oxygen saturation dropped to 70 to 75% while on 2Lnc. However in bed and on 2 L of nasal cannula his oxygen saturation was 96%. Before the patient was seen by me General Surgery had ordered a chest x-ray. Patient had just returned from radiology for the chest x-ray at the time of my examination. Social history: Patient lives at home with his spouse. He is a never smoker. He consumes about a glass of wine every day. Surgical history: On this admission he had a cholecystectomy. Also he reports lung surgery to remove a spot on his lungs. Family history: His dad had lung cancer. His mom from pneumonia. Patient believed that his mom had lung disease because of secondhand smoking from patient's father. Vitals/I&O's: Vital Signs Temp Pulse Resp BP Pulse Ox 98.5 F 79 18 167/72 H 96 05/19/18 06:32 05/19/18 05:41 05/19/18 04:17 05/19/18 05:41 05/19/18 04:17 Oxygen Flow Rate (L/min) 2 Oxygen Delivery Method Nasal Cannula Weight: 73 kg Body Mass Index (BMI) 23.8 Finger Stick Blood Glucose 220 Intake and Output for Last 24 Hours 05/17/18 05/18/18 05/19/18 23:59 23:59 23:59 Intake Total 2532 / 2532 2726 / 2726 1849.8 / 1849.8 Output Total 2890 / 2890 1075 / 1075 Balance 2532 / 2532 -164 / -164 774.8 / 774.8 General: Alert, Oriented x3, Cooperative HEENT: Atraumatic, PERRLA, EOMI, Normocephalic Neck: Supple, No JVD, Negative Carotid Bruits Lungs: Rales - Bibasilar, Tachypneic Cardiovascular: Regular rate, No murmurs Abdomen: Bowel Sounds Present, Soft, Non Tender Extremities: No edema, Capillary Refill Less than 3 Seconds Skin: No rashes, No breakdown Musculoskeletal: No Tenderness to Palpation of Joints or Extremities Neurological: Neuro grossly intact Psych/Mental Status: Normal Affect, Appropriate Laboratory Results 05/17/18 02:30: Diff Path Review Reviewed 05/18/18 05:30: WBC 20.8 H, RBC 4.23 L, Hgb 13.6, Hct 41.8, MCV 98.8 H, MCH 32.2 H, MCHC 32.5, RDW 12.9, RDW Differential 45.7 H, Plt Count 156, MPV 11.0 05/18/18 11:21: POC Glucose 146 H 05/18/18 17:16: POC Glucose 141 H 05/18/18 23:11: POC Glucose 127 H Current Medications Albuterol Sulfate (Ventolin Aerosols) 2.5 mg INHALATION Q2H PRN PRN PRN Reason: WHEEZING Atorvastatin Calcium (Lipitor) 5 mg PO QHS [facility] Last Admin: 05/18/18 20:26 Dose: 5 mg Hydralazine HCl (Apresoline Iv) 10 mg IV Q4H PRN PRN PRN Reason: SBP >160 Last Admin: 05/19/18 05:19 Dose: 10 mg Piperacillin Sod/Tazobactam Sod (Zosyn) 3.375 gm in 50 mls @ 12.5 mls/hr IV Q8 [facility] Last Admin: 05/19/18 06:39 Dose: 12.5 mls/hr Insulin Human Lispro (Humalog Kwikpen (Bkc)) 0 unit SC TIDAC [facility]; Protocol Last Admin: 05/18/18 17:30 Dose: Not Given Linagliptin (Tradjenta) 5 mg PO DAILY [facility] Last Admin: 05/18/18 09:27 Dose: 5 mg Lorazepam (Ativan) 0.5 mg PO X1 ONE Stop: 05/19/18 06:35 Metoprolol Succinate (Toprol Xl (Beta Reid)) 50 mg PO DAILY@2200 [facility] Last Admin: 05/18/18 20:27 Dose: 50 mg Morphine Sulfate () 1 - 3 mg IV Q1H PRN PRN PRN Reason: SEVERE PAIN (6-10/10) Last Admin: 05/18/18 23:48 Dose: 2 mg Ondansetron HCl (Zofran) 4 mg IV Q6H PRN PRN PRN Reason: NAUSEA Last Admin: 05/19/18 04:48 Dose: 4 mg Sodium Chloride () 5 - 15 ml IV UD PRN PRN Reason: SALINE FLUSH Last Admin: 05/19/18 06:39 Dose: 10 ml Tamsulosin HCl (Flomax) 0.4 mg PO QHS [facility] Last Admin: 05/18/18 23:11 Dose: 0.4 mg Medical Necessity - Tobacco Use Smoking Status: Never smoker Assessment/Plan Patient is a 78-year-old male with a significant history of hypertension; diabetes mellitus; hyperlipidemia and erectile dysfunction who presented at the emergency department on 05/17/2018 because of abdominal pain and was diagnosed with cholecystitis for which he had a cholecystectomy on same day and now with uncontrolled blood pressure for which reason general surgery consulted internal medicine service for management; and also patient has dyspnea and hypoxemia with mild exertion; and appears anxious. Acute hypoxemic respiratory failure. Differential diagnosis include a postoperative atelectasis or heart failure [place] (unspecified preserved or reduced closed ( X-ray today, 05/19/2018 showed small bilateral pleural effusions, larger on the right with no change compared to 05/18/2018 and new compared with 05/16/2018. Bibasilar edema or infiltrates unchanged compared to 05/18/2018 and new compared to 05/16/2018. Also it showed right post thoracotomy changes with ipsilateral volume loss normal heart size and no pneumothorax. Maintenance IV infusion has been discontinued We will give IV Lasix 40 mg x1 now. Assess for further need of diuretics. Echocardiogram ordered. Patient is on Zosyn that was started on 05/17/2018 perioperatively. Patient has no fever. However he had a leukocytosis of 20.8 on 05/18/2018. Repeat WBC is pending. His white count could be from his cholecystitis. Patient already had cholecystectomy. It does not appear the patient has a pneumonia. Recommend discontinuing Zosyn within the next 24 hours if clinical suspicion of pneumonia remains low. Okay to continue as needed albuterol Uncontrolled hypertension Highest systolic blood pressure 190; higher diastolic blood pressure 73 We will add hydralazine as needed for systolic blood pressure more than 160. Continue home metoprolol. Likely his blood pressure is increasing because of anxiety after surgery and being in the hospital settings. Trend blood pressures and adjust blood pressure medication as necessary. Anxiety Ativan 0.5 mg x1 ordered. Diabetes mellitus Blood glucose is fairly controlled on his current regimen. Continue current regimen of Tradjenta and correction scale insulin. Patient is on metformin and saxagliptin hydrochloride at home. This was continued on admission. Will not continue it at this time we are to figure out the cause of his acute hypoxemic respiratory failure. Hyperlipidemia Lipitor continued DVT prophylaxis Subcutaneous heparin ordered Code Visit Inpatient E&M: 76064 Subs Hosp L3
[2018-05-19] MEDS: Insulin Lispro 100 UNIT/ML INSULN.PEN SC ×2 (06:48→16:35)
[2018-05-19] MEDS: LORazepam 0.5 MG Tablet PO (06:51)
--- NOTE | 2018-05-19 06:58 | ECHOD_ITS ---
Reason For Study: Dyspnea/SOB Procedure This was a 2D Doppler, Color Flow transthoracic echocardiogram. The exam was of adequate technical quality. Exam performed portable in patient room. Left Ventricle Normal LV size. Left ventricular systolic function is normal. The estimated ejection fraction is 65 %. Diastolic function is indeterminate. No regional wall motion abnormalities noted. Right Ventricle Normal RV size. Normal systolic function. Atria Normal left atrium. Normal right atrium. No doppler evidence for ASD. Bubble contrast study negative for right to left interatrial shunt. Mitral Valve There is no mitral annular calcification. Normal mitral valve. Mild (1+) mitral valve insufficiency. Tricuspid Valve Normal tricuspid valve. Trivial tricuspid valve insufficiency. Right ventricular systolic pressure estimated to be 34 mmHg. Aortic Valve Trisinus/trileaflet aortic valve. Mild diffuse aortic valve thickening. Pulmonic Valve The pulmonic valve is not well visualized. Great Vessels Normal sized aortic root. Pericardium/Pleural No pericardial effusion. Medication Performed a rapid injection of agitated mix of 9 cc saline and 1cc air to assess for atrial septal defect. MMode/2D Measurements & Calculations LVIDd: 4.9 cm IVSd: 1.2 cm Ao root diam: 3.1 cm LVIDs: 3.1 cm LVPWd: 1.1 cm RVDd: 3.4 cm FS: 37.5 % LAV(MOD-bp): 36.4 ml LVAd ap4: 30.3 cm2 SV(MOD-sp4): 67.1 ml LAV(MOD-bp) Indexed: 19.3 ml/m2 EDV(MOD-sp4): 93.9 ml LAV(MOD-sp2): 44.6 ml EDV(sp4-el): 96.2 ml LAV(MOD-sp4): 24.0 ml LVAs ap4: 14.4 cm2 ESV(MOD-sp4): 26.8 ml ESV(sp4-el): 26.5 ml EF(MOD-sp4): 71.4 % EF(sp4-el): 72.5 % SV(sp4-el): 69.7 ml LA A4 area: 11.0 cm2 LA dimension(2D): 4.0 cm RA A4 area: 7.7 cm2 Doppler Measurements & Calculations MV E max jorge l: 75.0 cm/sec Lat Peak E' Jorge L: 7.7 cm/sec Med Peak E' Jorge L: 6.0 cm/sec MV A max jorge l: 94.4 cm/sec E/E' lat: 9.8 E/E' med: 12.5 MV E/A: 0.79 Ao V2 max: 176.3 cm/sec LV V1 max: 124.2 cm/sec PA V2 max: 136.6 cm/sec Ao max P.4 mmHg LV V1 max P.2 mmHg Ao V2 mean: 121.7 cm/sec Ao mean P.5 mmHg Ao V2 VTI: 38.0 cm TR max jorge l: 277.7 cm/sec TR max P.8 mmHg Interpretation Summary Left ventricular systolic function is normal. The estimated ejection fraction is 65 %. Mild (1+) mitral valve insufficiency. Trivial tricuspid valve insufficiency. Mild diffuse aortic valve thickening. Right ventricular systolic pressure estimated to be 34 mmHg. Diastolic function is indeterminate. Ordering Physician: Merritt Olivia Referring Physician: Tyree Contreras Performed By: Kelli Victor, JUDIT, RVT
--- NOTE | 2018-05-19 06:59 | PN_ITS ---
Subjective: Internal medicine consult note Patient is a 78-year-old male with a significant history of hypertension; diabetes mellitus; hyperlipidemia and erectile dysfunction who presented at the emergency department on 05/17/2018 because of abdominal pain and was diagnosed with cholecystitis for which he had a cholecystectomy on same day and now with uncontrolled blood pressure for which reason general surgery consulted internal medicine service for management. At home patient takes metoprolol 50 mg p.o. nightly. Patient reported that at home his systolic blood pressure range from 120-140. And his diastolic blood pressure went from 55-75. At the time of evaluation patient reported feeling lousy. Earlier on nurse had requested antianxiety medication to make patient more relax since patient appeared to feel uneasy. Further patient's nurse reported that patient has shortness of breath with exertion. She reported that on 2 L when patient ambulate his oxygen saturation dropped to 70 to 75% while on 2Lnc. However in bed and on 2 L of nasal cannula his oxygen saturation was 96%. Before the patient was seen by me General Surgery had ordered a chest x-ray. Patient had just returned from radiology for the chest x-ray at the time of my examination. Social history: Patient lives at home with his spouse. He is a never smoker. He consumes about a glass of wine every day. Surgical history: On this admission he had a cholecystectomy. Also he reports lung surgery to remove a spot on his lungs. Family history: His dad had lung cancer. His mom from pneumonia. Patient believed that his mom had lung disease because of secondhand smoking from patient's father. Vitals/I&O's: Vital Signs Temp Pulse Resp BP Pulse Ox 98.5 F 79 18 167/72 H 96 05/19/18 06:32 05/19/18 05:41 05/19/18 04:17 05/19/18 05:41 05/19/18 04:17 Oxygen Flow Rate (L/min) 2 Oxygen Delivery Method Nasal Cannula Weight: 73 kg Body Mass Index (BMI) 23.8 Finger Stick Blood Glucose 220 Intake and Output for Last 24 Hours 05/17/18 05/18/18 05/19/18 23:59 23:59 23:59 Intake Total 2532 / 2532 2726 / 2726 1849.8 / 1849.8 Output Total 2890 / 2890 1075 / 1075 Balance 2532 / 2532 -164 / -164 774.8 / 774.8 General: Alert, Oriented x3, Cooperative HEENT: Atraumatic, PERRLA, EOMI, Normocephalic Neck: Supple, No JVD, Negative Carotid Bruits Lungs: Rales - Bibasilar, Tachypneic Cardiovascular: Regular rate, No murmurs Abdomen: Bowel Sounds Present, Soft, Non Tender Extremities: No edema, Capillary Refill Less than 3 Seconds Skin: No rashes, No breakdown Musculoskeletal: No Tenderness to Palpation of Joints or Extremities Neurological: Neuro grossly intact Psych/Mental Status: Normal Affect, Appropriate Laboratory Results 05/17/18 02:30: Diff Path Review Reviewed 05/18/18 05:30: WBC 20.8 H, RBC 4.23 L, Hgb 13.6, Hct 41.8, MCV 98.8 H, MCH 32.2 H, MCHC 32.5, RDW 12.9, RDW Differential 45.7 H, Plt Count 156, MPV 11.0 05/18/18 11:21: POC Glucose 146 H 05/18/18 17:16: POC Glucose 141 H 05/18/18 23:11: POC Glucose 127 H Current Medications Albuterol Sulfate (Ventolin Aerosols) 2.5 mg INHALATION Q2H PRN PRN PRN Reason: WHEEZING Atorvastatin Calcium (Lipitor) 5 mg PO QHS [facility] Last Admin: 05/18/18 20:26 Dose: 5 mg Hydralazine HCl (Apresoline Iv) 10 mg IV Q4H PRN PRN PRN Reason: SBP >160 Last Admin: 05/19/18 05:19 Dose: 10 mg Piperacillin Sod/Tazobactam Sod (Zosyn) 3.375 gm in 50 mls @ 12.5 mls/hr IV Q8 [facility] Last Admin: 05/19/18 06:39 Dose: 12.5 mls/hr Insulin Human Lispro (Humalog Kwikpen (Bkc)) 0 unit SC TIDAC [facility]; Protocol Last Admin: 05/18/18 17:30 Dose: Not Given Linagliptin (Tradjenta) 5 mg PO DAILY [facility] Last Admin: 05/18/18 09:27 Dose: 5 mg Lorazepam (Ativan) 0.5 mg PO X1 ONE Stop: 05/19/18 06:35 Metoprolol Succinate (Toprol Xl (Beta Reid)) 50 mg PO DAILY@2200 [facility] Last Admin: 05/18/18 20:27 Dose: 50 mg Morphine Sulfate () 1 - 3 mg IV Q1H PRN PRN PRN Reason: SEVERE PAIN (6-10/10) Last Admin: 05/18/18 23:48 Dose: 2 mg Ondansetron HCl (Zofran) 4 mg IV Q6H PRN PRN PRN Reason: NAUSEA Last Admin: 05/19/18 04:48 Dose: 4 mg Sodium Chloride () 5 - 15 ml IV UD PRN PRN Reason: SALINE FLUSH Last Admin: 05/19/18 06:39 Dose: 10 ml Tamsulosin HCl (Flomax) 0.4 mg PO QHS [facility] Last Admin: 05/18/18 23:11 Dose: 0.4 mg Medical Necessity - Tobacco Use Smoking Status: Never smoker Assessment/Plan Patient is a 78-year-old male with a significant history of hypertension; diabe sandro mellitus; hyperlipidemia and erectile dysfunction who presented at the emergency department on 05/17/2018 because of abdominal pain and was diagnosed with cholecystitis for which he had a cholecystectomy on same day and now with uncontrolled blood pressure for which reason general surgery consulted internal medicine service for management; and also patient has dyspnea and hypoxemia with mild exertion; and appears anxious. Acute hypoxemic respiratory failure. Differential diagnosis include a postoperative atelectasis or heart failure [place] (unspecified preserved or reduced closed ( X-ray today, 05/19/2018 showed small bilateral pleural effusions, larger on the right with no change compared to 05/18/2018 and new compared with 05/16/2018. Bibasilar edema or infiltrates unchanged compared to 05/18/2018 and new compared to 05/16/2018. Also it showed right post thoracotomy changes with ipsilateral volume loss normal heart size and no pneumothorax. Maintenance IV infusion has been discontinued We will give IV Lasix 40 mg x1 now. Assess for further need of diuretics. Echocardiogram ordered. Patient is on Zosyn that was started on 05/17/2018 perioperatively. Patient has no fever. However he had a leukocytosis of 20.8 on 05/18/2018. Repeat WBC is pending. His white count could be from his cholecystitis. Patient already had cholecystectomy. It does not appear the patient has a pneumonia. Recommend discontinuing Zosyn within the next 24 hours if clinical suspicion of pneumonia remains low. Okay to continue as needed albuterol Uncontrolled hypertension Highest systolic blood pressure 190; higher diastolic blood pressure 73 We will add hydralazine as needed for systolic blood pressure more than 160. Continue home metoprolol. Likely his blood pressure is increasing because of anxiety after surgery and being in the hospital settings. Trend blood pressures and adjust blood pressure medication as necessary. Anxiety Ativan 0.5 mg x1 ordered. Diabetes mellitus Blood glucose is fairly controlled on his current regimen. Continue current regimen of Tradjenta and correction scale insulin. Patient is on metformin and saxagliptin hydrochloride at home. This was continued on admission. Will not continue it at this time we are to figure out the cause of his acute hypoxemic respiratory failure. Hyperlipidemia Lipitor continued DVT prophylaxis Subcutaneous heparin ordered Code Visit Inpatient E&M: 55248 Subs Hosp L3
[2018-05-19 07:00] LABS: Bedside Glucose 162 mg/dL (70-110)
[2018-05-19] MEDS: Furosemide 40 MG/4 ML Vial IV (07:53)
[2018-05-19] MEDS: Heparin Injection (Vial) 5,000 UNIT/ML VIAL 5000 UNIT SC ×2 (07:56→21:16)
[2018-05-19 08:19] LABS: Absolute Lymphocyte Count 0.55 X10^3/ul (0.83-4.51); Absolute Neutrophil Count 12.7 X10^3/uL (2.0-7.7); Basophil# 0.02 X10^3/uL; Basophil% 0.1 % (0-1); Eosinophil# 0.03 X10^3/uL; Eosinophils% 0.2 % (0-5); Hematocrit 39.7 % (40-54); Hemoglobin 13.2 g/dl (13.0-16.5); Lymphocyte # 0.55 X10^3/ul (4.0); Lymphocyte % 3.9 % (19-41); Mean Corp Hgb Conc 33.2 g/gl (32-36); Mean Corpuscular Volume 96.1 fL (80-94); Mean Platelet Vol. 10.2 fl (6.2-12.0); Monocyte# 0.86 X10^3/uL; Neutrophil # 12.72 X10^3/uL (2.7-7.7); Neutrophil % 89.5 % (47-70); Platelet Count 170 K/mm3 (150-450); RBC Distribution Width CV 12.4 % (11.6-14.6); RBC Distribution Width SD 42.5 fl (35.1-43.9); Red Blood Count 4.13 M/mm3 (4.6-6.2); White Blood Count 14.2 K/mm3 (4.4-11.0)
[2018-05-19 08:20] LABS: Differential Indicated SCAN CRITERIA MET; POSITIVE COUNT NO; POSITIVE DIFFERENTIAL YES; POSITIVE MORPHOLOGY NO
[2018-05-19 08:37] LABS: ALB/GLOB Ratio 0.7 RATIO (0.9-2.4); AST(SGOT) 17 U/L (15-37); Alanine Aminotransfer ALT/SGPT 34 U/L (16-61); Albumin, Serum 2.6 g/dL (3.2-5.0); Alkaline Phosphatase 114 U/L (45-117); Anion Gap 6 (5-15); BUN 17 mg/dL (7-18); BUN/Creat Ratio 16.3 RATIO (10-20); Calcium,Total 8.4 mg/dL (8.5-10.1); Chloride 102 mmol/L (98-107); Creatinine, Serum 1.04 mg/dL (0.70-1.30); EST Glomerular Filtration Rate 73 mL/min (>60); Est Glom Filt Rate - Afr Amer 89 mL/min (>60); Estimated Creatinine Clearance 58.54 ml/min; Globulin 3.6 g/dL (2.2-4.2); Glucose 157 mg/dL (74-106); Protein, Total 6.2 g/dL (6.4-8.2); Sodium Level 136 mmol/L (136-145)
--- NOTE | 2018-05-19 10:35 | PN.SURG_ITS ---
Subjective: some SOB overnight - Physical Exam General: Alert, Oriented x3, Cooperative Lungs: Clear to auscultation, Diminished Cardiovascular: Regular rate, Regular Rhythm Abdomen: Soft, Non Tender - except at incisions, Hypoactive Bowel Sounds Vital Signs Temp Pulse Resp BP Pulse Ox 98.2 F 64 18 148/68 H 97 05/19/18 07:49 05/19/18 07:49 05/19/18 07:49 05/19/18 07:49 05/19/18 07:49 Oxygen Flow Rate (L/min) 2 Oxygen Delivery Method Nasal Cannula Weight: 73 kg Body Mass Index (BMI) 23.8 Finger Stick Blood Glucose 220 Intake and Output for Last 24 Hours 05/17/18 05/18/18 05/19/18 23:59 23:59 23:59 Intake Total 2532 / 2532 2726 / 2726 1996.8 / 1996. Output Total 2890 / 2890 3075 / 3075 Balance 2532 / 2532 -164 / -164 -1077.2 / -1077.2 Laboratory Tests Past 24 Hrs 05/17/18 05/19/18 05/19/18 02:30 07:57 07:57 WBC 14.2 H RBC 4.13 L Hgb 13.2 Hct 39.7 L MCV 96.1 H MCH 32.0 MCHC 33.2 RDW 12.4 RDW Differential 42.5 Plt Count 170 MPV 10.2 Immature Gran % (Auto) 0.300 Neut % (Auto) 89.5 H Lymph % (Auto) 3.9 L [place] % (Auto) 6.0 Eos % (Auto) 0.2 Baso % (Auto) 0.1 Absolute Neuts (auto) 12.7 H Absolute Lymphs (auto) 0.55 L Total Counted Not Reportable Diff Path Review Reviewed Sodium 136 Potassium 4.0 Chloride 102 Carbon Dioxide 28.0 Anion Gap 6 BUN 17 Creatinine 1.04 Estim Creat Clear Calc 58.54 Est GFR (MDRD) Af Amer 89 Est GFR (MDRD) Non-Af 73 BUN/Creatinine Ratio 16.3 Glucose 157 H Calcium 8.4 L Total Bilirubin 1.90 H AST 17 ALT 34 Alkaline Phosphatase 114 Total Protein 6.2 L Albumin 2.6 L Globulin 3.6 Albumin/Globulin Ratio 0.7 L POC Glucose 05/19/18 05/18/18 05/18/18 06:46 23:11 17:16 POC Glucose 162 H 127 H 141 H 05/18/18 11:21 POC Glucose 146 H Medical Necessity - Tobacco Use Smoking Status: Never smoker Assessment/Plan acute cholecystitis bordering on hydrops, gangrenous cholecystitis patient with normalizing white blood cell count today and normalizing bilirubin with normal transaminases. We will continue IV antibiotics and repeat laboratory studies in the morning. no intraoperative cholangiogram was obtained due to the degree of inflammation. Poor respiratory effort. Chest x-ray demonstrates stable bilateral atelectasis. We will plan for increased pulmonary toilet, incentive spirometry use, and nebulizers to see if this improves his pulmonary toilet. History of diabetes-blood sugars in the 160-220 range. Currently on sliding scale. Hypertensive overnight. Medicine on board to assist with management Somewhat hypoactive bowel sounds. Given the degree of inflammation of the transverse colon and duodenal area from the inflammatory cholecystitis, would not be surprised if patient had a mild ileus-type picture. We will maintain clear liquids without advancing for the near being. Ross catheter in place - adequate urine output
[2018-05-19 12:46] LABS: Bedside Glucose 134 mg/dL (70-110)
[2018-05-19] MEDS: Morphine 2 MG/ML Syringe IV (12:46)
--- NOTE | 2018-05-19 13:25 | CASEMGMT ---
LUKE MCDANIEL Face to Face with patient for initial transition planning/care coordination assessment. RN VIOLETA introduced self and role at [facility]. Patient lying in bed, alert and oriented. Patient willing to participate in assessment and is able to answer all questions appropriately. Care providers, pharmacy, and demographics verified. Patient wishes to discharge home, denies need for home health at this time. Patient states he has no further needs or concerns at this time. CM to follow for discharge planning needs that may arise. PCP: Ben Specialists: None [facility] [employer] [facility] Prescription Benefit: Yes Living Will/HPOA: None LNOK: Living Arrangements: Patient lives with in 2 story house with bed and bath on first floor. Patient independent at home. Transportation: self/ DME/HHC: Patient denies needs Disposition Plan: Patient to discharge home with family support and follow-up plans in place. Tabitha BROWN, RN, CM
[2018-05-19 16:56] LABS: Bedside Glucose 203 mg/dL (70-110)
[2018-05-19] MEDS: Atorvastatin Calcium 10 MG Tablet 5 MG PO (21:16)
[2018-05-19] MEDS: Metoprolol(XL)Succ 50 MG Tablet PO (21:16)
[2018-05-19] MEDS: Tamsulosin HCl 0.4 MG Capsule PO (21:16)
[2018-05-19 21:25] LABS: Bedside Glucose 134 mg/dL (70-110)
[2018-05-20 03:15] VITALS: BP 153/64; PULSE 64; RESP 18; TEMP 37.1; O2SAT 95
[2018-05-20] MEDS: Morphine 2 MG/ML Syringe IV (03:20)
[2018-05-20] MEDS: Piperacil/Tazobactam 3.375 GM/50 ML ML IV ×2 (06:17→14:55)
[2018-05-20 06:26] LABS: Bedside Glucose 126 mg/dL (70-110)
[2018-05-20 06:40] LABS: Absolute Lymphocyte Count 1.19 X10^3/ul (0.83-4.51); Absolute Neutrophil Count 6.1 X10^3/uL (2.0-7.7); Basophil# 0.02 X10^3/uL; Basophil% 0.2 % (0-1); Eosinophils% 2.4 % (0-5); Hematocrit 36.3 % (40-54); Hemoglobin 12.1 g/dl (13.0-16.5); Lymphocyte # 1.19 X10^3/ul (4.0); Lymphocyte % 14.1 % (19-41); Mean Corp Hgb Conc 33.3 g/gl (32-36); Mean Corpuscular Hgb 31.9 pg (27.0-32.0); Mean Corpuscular Volume 95.8 fL (80-94); Mean Platelet Vol. 10.5 fl (6.2-12.0); Monocyte# 0.92 X10^3/uL; Monocyte% 10.9 % (0-10); Neutrophil # 6.11 X10^3/uL (2.7-7.7); Neutrophil % 72.2 % (47-70); Platelet Count 179 K/mm3 (150-450); RBC Distribution Width CV 12.2 % (11.6-14.6); RBC Distribution Width SD 41.6 fl (35.1-43.9); Red Blood Count 3.79 M/mm3 (4.6-6.2); White Blood Count 8.5 K/mm3 (4.4-11.0)
[2018-05-20 06:46] LABS: POSITIVE COUNT NO; POSITIVE DIFFERENTIAL NO; POSITIVE MORPHOLOGY NO
[2018-05-20 07:01] LABS: ALB/GLOB Ratio 0.7 RATIO (0.9-2.4); AST(SGOT) 25 U/L (15-37); Alanine Aminotransfer ALT/SGPT 28 U/L (16-61); Albumin, Serum 2.3 g/dL (3.2-5.0); Alkaline Phosphatase 183 U/L (45-117); Anion Gap 7 (5-15); BUN 17 mg/dL (7-18); BUN/Creat Ratio 16.3 RATIO (10-20); Calcium,Total 7.9 mg/dL (8.5-10.1); Chloride 101 mmol/L (98-107); Creatinine, Serum 1.04 mg/dL (0.70-1.30); EST Glomerular Filtration Rate 73 mL/min (>60); Est Glom Filt Rate - Afr Amer 89 mL/min (>60); Estimated Creatinine Clearance 58.54 ml/min; Globulin 3.3 g/dL (2.2-4.2); Glucose 128 mg/dL (74-106); Potassium 3.3 mmol/L (3.5-5.1); Protein, Total 5.6 g/dL (6.4-8.2); Sodium Level 137 mmol/L (136-145)
[2018-05-20 08:23] VITALS: O2SAT 94
[2018-05-20] MEDS: LINAGLIPTIN 5 MG TABLET PO (09:50)
[2018-05-20] MEDS: Heparin Injection (Vial) 5,000 UNIT/ML VIAL 5000 UNIT SC (09:50)
[2018-05-20 10:04] VITALS: BP 166/64; PULSE 61; RESP 17; TEMP 37; O2SAT 94
--- NOTE | 2018-05-20 10:04 | PCM.PN.HOSP ---
Subjective: Doing well, pain is much improved. He is not short of breath and no chest pain. Drinking well does not have much of an appetite though. Vitals/I&O's: Vital Signs Temp Pulse Resp BP Pulse Ox 98.8 F 64 18 153/64 H 94 05/20/18 03:15 05/20/18 03:15 05/20/18 03:15 05/20/18 03:15 05/20/18 08:23 Oxygen Flow Rate (L/min) 2 Oxygen Delivery Method Room Air Weight: 160 lb 14.999 oz Body Mass Index (BMI) 23.8 Finger Stick Blood Glucose 220 Intake and Output for Last 24 Hours 05/18/18 05/19/18 05/20/18 23:59 23:59 23:59 Intake Total 2726 / 2726 2365.8 / 2365.8 356 / 356 Output Total 2890 / 2890 3975 / 3975 775 / 775 Balance -164 / -164 -1609.2 / -1609.2 -419 / -419 General: Alert, Oriented x3, Cooperative, No apparent distress HEENT: Atraumatic, EOMI, Normocephalic Oral: Moist Mucosa Neck: Supple, No JVD Lungs: Clear to auscultation, Normal air movement, No rhonchi, No wheeze, No rales Cardiovascular: Regular rate, Regular Rhythm, Normal S1, Normal S2, No murmurs Abdomen: Soft, Non-Distended, No Hepato-splenomegaly, Tender - Mild around the incisions Extremities: No edema, Capillary Refill Less than 3 Seconds Skin: No rashes, No breakdown Neurological: Neuro grossly intact, Sensory exam intact to light touch and pain Psych/Mental Status: Normal Affect, Appropriate Laboratory Results 05/19/18 12:35: POC Glucose 134 H 05/19/18 16:32: POC Glucose 203 H 05/19/18 21:20: POC Glucose 134 H 05/20/18 06:00: WBC 8.5, RBC 3.79 L, Hgb 12.1 L, Hct 36.3 L, MCV 95.8 H, MCH 31.9, MCHC 33.3, RDW 12.2, RDW Differential 41.6, Plt Count 179, MPV 10.5, Immature Gran % (Auto) 0.200, Neut % (Auto) 72.2 H, Lymph % (Auto) 14.1 L, [place] % (Auto) 10.9 H, Eos % (Auto) 2.4, Baso % (Auto) 0.2, Absolute Neuts (auto) 6.1, Absolute Lymphs (auto) 1.19, Total Counted Not Reportable 05/20/18 06:00: Sodium 137, Potassium 3.3 L, Chloride 101, Carbon Dioxide 29.0, Anion Gap 7, BUN 17, Creatinine 1.04, Estim Creat Clear Calc 58.54, Est GFR (MDRD) Af Amer 89, Est GFR (MDRD) Non-Af 73, BUN/Creatinine Ratio 16.3, Glucose 128 H, Calcium 7.9 L, Total Bilirubin 2.00 H, AST 25, ALT 28, Alkaline Phosphatase 183 H, Total Protein 5.6 L, Albumin 2.3 L, Globulin 3.3, Albumin/Globulin Ratio 0.7 L 05/20/18 06:20: POC Glucose 126 H Current Medications Albuterol Sulfate (Ventolin Aerosols) 2.5 mg INHALATION Q2H PRN PRN PRN Reason: WHEEZING Atorvastatin Calcium (Lipitor) 5 mg PO QHS [facility] Last Admin: 05/19/18 21:16 Dose: 5 mg Heparin Sodium (Porcine) (Heparin Na) 5,000 unit SC Q12 [facility] Last Admin: 05/20/18 09:50 Dose: 5,000 unit Hydralazine HCl (Apresoline Iv) 10 mg IV Q4H PRN PRN PRN Reason: SBP >160 Last Admin: 05/19/18 05:19 Dose: 10 mg Piperacillin Sod/Tazobactam Sod (Zosyn) 3.375 gm in 50 mls @ 12.5 mls/hr IV Q8 [facility] Last Admin: 05/20/18 06:17 Dose: 12.5 mls/hr Insulin Human Lispro (Humalog Kwikpen (Bkc)) 0 unit SC TIDAC [facility]; Protocol Last Admin: 05/20/18 06:20 Dose: Not Given Linagliptin (Tradjenta) 5 mg PO DAILY [facility] Last Admin: 05/20/18 09:50 Dose: 5 mg Lisinopril (Zestril) 10 mg PO DAILY [facility] Metoprolol Succinate (Toprol Xl (Beta Reid)) 50 mg PO DAILY@2200 [facility] Last Admin: 05/19/18 21:16 Dose: 50 mg Morphine Sulfate () 1 - 3 mg IV Q1H PRN PRN PRN Reason: SEVERE PAIN (6-10/10) Last Admin: 05/20/18 03:20 Dose: 2 mg Ondansetron HCl (Zofran) 4 mg IV Q6H PRN PRN PRN Reason: NAUSEA Last Admin: 05/19/18 12:36 Dose: 4 mg Sodium Chloride () 5 - 15 ml IV UD PRN PRN Reason: SALINE FLUSH Last Admin: 05/19/18 12:38 Dose: 10 ml Tamsulosin HCl (Flomax) 0.4 mg PO QHS [facility] Last Admin: 05/19/18 21:16 Dose: 0.4 mg Medical Necessity - Tobacco Use Smoking Status: Never smoker Assessment/Plan 1. Uncontrolled hypertension/acute hypoxic respiratory failure (resolved) -Pressure is much better under control after 40 mg of Lasix given yesterday. -Echo with 65% EF -Currently blood pressure is 153 systolic, given that he is a diabetic will add 10 mg of lisinopril today which she should be discharged on and have PCP follow-up. -oxygenation is great on room air. -Leukocytosis is resolved -Okay for discharge from medicine point of view 2. Cholecystitis -Postop day 3 from laparoscopic cholecystectomy -Gallbladder was gangrenous and there is significant inflammation in the abdomen. -This is likely what led to shallow breathing and splinting leading to a shortness of breath. -Doing much better today and is on Zosyn -Remove his Ross this morning and he ambulated around the nurse's station 3. DM 2 -Blood sugars are controlled as an outpatient -Continue with Tradjenta, metformin, saxagliptin at home 5. Hyperlipidemia -Stable -Continue with Lipitor DVT: Heparin Code Visit Inpatient E&M: 83081 Subs Hosp L2
--- NOTE | 2018-05-20 10:14 | PN_ITS ---
Subjective: Doing well, pain is much improved. He is not short of breath and no chest pain. Drinking well does not have much of an appetite though. Vitals/I&O's: Vital Signs Temp Pulse Resp BP Pulse Ox 98.8 F 64 18 153/64 H 94 05/20/18 03:15 05/20/18 03:15 05/20/18 03:15 05/20/18 03:15 05/20/18 08:23 Oxygen Flow Rate (L/min) 2 Oxygen Delivery Method Room Air Weight: 160 lb 14.999 oz Body Mass Index (BMI) 23.8 Finger Stick Blood Glucose 220 Intake and Output for Last 24 Hours 05/18/18 05/19/18 05/20/18 23:59 23:59 23:59 Intake Total 2726 / 2726 2365.8 / 2365.8 356 / 356 Output Total 2890 / 2890 3975 / 3975 775 / 775 Balance -164 / -164 -1609.2 / -1609.2 -419 / -419 General: Alert, Oriented x3, Cooperative, No apparent distress HEENT: Atraumatic, EOMI, Normocephalic Oral: Moist Mucosa Neck: Supple, No JVD Lungs: Clear to auscultation, Normal air movement, No rhonchi, No wheeze, No rales Cardiovascular: Regular rate, Regular Rhythm, Normal S1, Normal S2, No murmurs Abdomen: Soft, Non-Distended, No Hepato-splenomegaly, Tender - Mild around the incisions Extremities: No edema, Capillary Refill Less than 3 Seconds Skin: No rashes, No breakdown Neurological: Neuro grossly intact, Sensory exam intact to light touch and pain Psych/Mental Status: Normal Affect, Appropriate Laboratory Results 05/19/18 12:35: POC Glucose 134 H 05/19/18 16:32: POC Glucose 203 H 05/19/18 21:20: POC Glucose 134 H 05/20/18 06:00: WBC 8.5, RBC 3.79 L, Hgb 12.1 L, Hct 36.3 L, MCV 95.8 H, MCH 31.9, MCHC 33.3, RDW 12.2, RDW Differential 41.6, Plt Count 179, MPV 10.5, Immature Gran % (Auto) 0.200, Neut % (Auto) 72.2 H, Lymph % (Auto) 14.1 L, [place] % (Auto) 10.9 H, Eos % (Auto) 2.4, Baso % (Auto) 0.2, Absolute Neuts (auto) 6.1, Absolute Lymphs (auto) 1.19, Total Counted Not Reportable 05/20/18 06:00: Sodium 137, Potassium 3.3 L, Chloride 101, Carbon Dioxide 29.0, Anion Gap 7, BUN 17, Creatinine 1.04, Estim Creat Clear Calc 58.54, Est GFR (MDRD) Af Amer 89, Est GFR (MDRD) Non-Af 73, BUN/Creatinine Ratio 16.3, Glucose 128 H, Calcium 7.9 L, Total Bilirubin 2.00 H, AST 25, ALT 28, Alkaline Phosphatase 183 H, Total Protein 5.6 L, Albumin 2.3 L, Globulin 3.3, Albumin/Globulin Ratio 0.7 L 05/20/18 06:20: POC Glucose 126 H Current Medications Albuterol Sulfate (Ventolin Aerosols) 2.5 mg INHALATION Q2H PRN PRN PRN Reason: WHEEZING Atorvastatin Calcium (Lipitor) 5 mg PO QHS [facility] Last Admin: 05/19/18 21:16 Dose: 5 mg Heparin Sodium (Porcine) (Heparin Na) 5,000 unit SC Q12 [facility] Last Admin: 05/20/18 09:50 Dose: 5,000 unit Hydralazine HCl (Apresoline Iv) 10 mg IV Q4H PRN PRN PRN Reason: SBP >160 Last Admin: 05/19/18 05:19 Dose: 10 mg Piperacillin Sod/Tazobactam Sod (Zosyn) 3.375 gm in 50 mls @ 12.5 mls/hr IV Q8 [facility] Last Admin: 05/20/18 06:17 Dose: 12.5 mls/hr Insulin Human Lispro (Humalog Kwikpen (Bkc)) 0 unit SC TIDAC [facility]; Protocol Last Admin: 05/20/18 06:20 Dose: Not Given Linagliptin (Tradjenta) 5 mg PO DAILY [facility] Last Admin: 05/20/18 09:50 Dose: 5 mg Lisinopril (Zestril) 10 mg PO DAILY [facility] Metoprolol Succinate (Toprol Xl (Beta Reid)) 50 mg PO DAILY@2200 [facility] Last Admin: 05/19/18 21:16 Dose: 50 mg Morphine Sulfate () 1 - 3 mg IV Q1H PRN PRN PRN Reason: SEVERE PAIN (6-10/10) Last Admin: 05/20/18 03:20 Dose: 2 mg Ondansetron HCl (Zofran) 4 mg IV Q6H PRN PRN PRN Reason: NAUSEA Last Admin: 05/19/18 12:36 Dose: 4 mg Sodium Chloride () 5 - 15 ml IV UD PRN PRN Reason: SALINE FLUSH Last Admin: 05/19/18 12:38 Dose: 10 ml Tamsulosin HCl (Flomax) 0.4 mg PO QHS [facility] Last Admin: 05/19/18 21:16 Dose: 0.4 mg Medical Necessity - Tobacco Use Smoking Status: Never smoker Assessment/Plan 1. Uncontrolled hypertension/acute hypoxic respiratory failure (resolved) -Pressure is much better under control after 40 mg of Lasix given yesterday. -Echo with 65% EF -Currently blood pressure is 153 systolic, given that he is a diabetic will add 10 mg of lisinopril today which she should be discharged on and have PCP follow- up. -oxygenation is great on room air. -Leukocytosis is resolved -Okay for discharge from medicine point of view 2. Cholecystitis -Postop day 3 from laparoscopic cholecystectomy -Gallbladder was gangrenous and there is significant inflammation in the abdom en. -This is likely what led to shallow breathing and splinting leading to a shortness of breath. -Doing much better today and is on Zosyn -Remove his Ross this morning and he ambulated around the nurse's station 3. DM 2 -Blood sugars are controlled as an outpatient -Continue with Tradjenta, metformin, saxagliptin at home 5. Hyperlipidemia -Stable -Continue with Lipitor DVT: Heparin Code Visit Inpatient E&M: 43343 Subs Hosp L2
--- NOTE | 2018-05-20 10:33 | DCINST_ITS ---
Discharge Diet: No Restrictions - drink plenty of fluids Discharge Activity: Return to Normal Activity, May not drive while taking narcot ic pain medications. Lifting Restrictions: no lifting greater than 20 pounds for 2 weeks Call your doctor if your incision/area has: Continuous Slow Oozing, Foul Smelling Discharge Call your doctor if you observe: Fever of 101 or Higher Additional Dressing/Incision Instructions:: Leave dressings in place. May get wet in shower. Do not soak - no tub baths/swimming Allergies/Adverse Reactions: Allergies No Known Allergies Allergy (Verified 05/16/18 05:01) Medications to take at Discharge Metoprolol Succinate [Toprol Xl] 50 mg PO QHS 05/16/18 Saxagliptin Hydrochloride [Onglyza] 5 mg PO QHS 05/16/18 Simvastatin 10 mg PO QHS 05/16/18 Tamsulosin HCl [Flomax] 0.4 mg PO QHS 05/16/18 Cholecalciferol (Vitamin D3) [Vitamin D3] 1 cap PO QHS 05/17/18 Fish Oil/Dha/Epa [Fish Oil 1,200 mg Fish Oil] 1 cap PO QHS 05/17/18 Metformin(XR) [Glucophage Xr] 500 mg PO QHS 05/17/18 [place] Fruit [[place]] 4 cap PO QHS 05/17/18 Sildenafil Citrate [Sildenafil] 1 - 3 tab PO PRN 05/17/18 Sitagliptin Phosphate [Januvia] 5 mg PO QHS 05/17/18 Vitamin E Acetate [Vitamin E] 400 unit PO QHS 05/17/18 Hydrocodone/Acetaminophen [[place] 5-325 Tablet] 1 ea PO Q8H PRN PRN 5 Days #15 tab 05/20/18 The following prescriptions were given: Hydrocodone/Acetaminophen [[place] 5-325 Tablet] 1 ea PO Q8H PRN PRN 5 Days #15 tab PRN Reason: Pain Primary Care Physician: Gino Contreras MD [Primary Care Provider] - Test Results: Test results from this visit will be discussed in further detail at your follow- up appointment, if applicable. Please Follow Up With: Dyllan Mckeon MD - call When: to be seen this week, please call for date and time, thank you
--- NOTE | 2018-05-20 10:46 | PN.SURG_ITS ---
Subjective: Patient feeling well Passing flatus Tolerating liquids - Physical Exam General: Alert, Oriented x3 Oral: Moist Mucosa Neck: Supple Lungs: Normal air movement Abdomen: Bowel Sounds Present, Soft Vital Signs Temp Pulse Resp BP Pulse Ox 98.6 F 61 17 166/64 H 94 05/20/18 10:04 05/20/18 10:04 05/20/18 10:04 05/20/18 10:04 05/20/18 10:04 Oxygen Flow Rate (L/min) 2 Oxygen Delivery Method Room Air Weight: 73 kg Body Mass Index (BMI) 23.8 Finger Stick Blood Glucose 220 Intake and Output for Last 24 Hours 05/18/18 05/19/18 05/20/18 23:59 23:59 23:59 Intake Total 2726 / 2726 2365.8 / 2365.8 356 / 356 Output Total 2890 / 2890 3975 / 3975 775 / 775 Balance -164 / -164 -1609.2 / -1609.2 -419 / -419 Laboratory Tests Past 24 Hrs 05/20/18 05/20/18 06:00 06:00 WBC 8.5 RBC 3.79 L Hgb 12.1 L Hct 36.3 L MCV 95.8 H MCH 31.9 MCHC 33.3 RDW 12.2 RDW Differential 41.6 Plt Count 179 MPV 10.5 Immature Gran % (Auto) 0.200 Neut % (Auto) 72.2 H Lymph % (Auto) 14.1 L [place] % (Auto) 10.9 H Eos % (Auto) 2.4 Baso % (Auto) 0.2 Absolute Neuts (auto) 6.1 Absolute Lymphs (auto) 1.19 Total Counted Not Reportable Sodium 137 Potassium 3.3 L Chloride 101 Carbon Dioxide 29.0 Anion Gap 7 BUN 17 Creatinine 1.04 Estim Creat Clear Calc 58.54 Est GFR (MDRD) Af Amer 89 Est GFR (MDRD) Non-Af 73 BUN/Creatinine Ratio 16.3 Glucose 128 H Calcium 7.9 L Total Bilirubin 2.00 H AST 25 ALT 28 Alkaline Phosphatase 183 H Total Protein 5.6 L Albumin 2.3 L Globulin 3.3 Albumin/Globulin Ratio 0.7 L POC Glucose 05/20/18 05/19/18 05/19/18 06:20 21:20 16:32 POC Glucose 126 H 134 H 203 H 05/19/18 12:35 POC Glucose 134 H Medical Necessity - Tobacco Use Smoking Status: Never smoker Assessment/Plan Impression: s/p laparoscopic cholecystectomy Plan: discharge to home follow up with Dr. Mckeon this week Regular diet, patient can pick and choose what he tolerates
[2018-05-20 11:53] VITALS: PULSE 61
[2018-05-20] MEDS: Metoprolol(XL)Succ 50 MG Tablet PO (11:53)
[2018-05-20 12:15] LABS: Bedside Glucose 149 mg/dL (70-110)
[2018-05-20 15:02] VITALS: BP 145/72; PULSE 66; RESP 16; TEMP 36.7; O2SAT 97
[2018-05-20] MEDS: Insulin Lispro 100 UNIT/ML INSULN.PEN SC (15:13)
[2018-05-20 15:26] LABS: Bedside Glucose 216 mg/dL (70-110)
--- NOTE | 2018-05-20 18:43 | PCM.DC.BLA ---
Discharge Summary Date of Admission: 05/17/18 Date of Discharge: 05/20/18 Summary: Remi Salazar is a pleasant 78 y/o WM who presented with severe abdominal pain. Findings of acute cholecystitis. He underwent laparoscopic cholecystectomy by Dr. Mckeon on 05/20/18. He tolerated procedure well. Had abdominal pain postoperatively, but then resolved By time of discharge, patient tolerating regular diet and vital signs normal. - Physical Exam Vital Signs Temp Pulse Resp BP Pulse Ox 98.0 F 66 16 145/72 H 97 05/20/18 15:02 05/20/18 15:02 05/20/18 15:02 05/20/18 15:02 05/20/18 15:02 Oxygen Flow Rate (L/min) 2 Oxygen Delivery Method Room Air Weight: 73 kg Body Mass Index (BMI) 23.8 Finger Stick Blood Glucose 220 Intake and Output for Last 24 Hours 05/18/18 05/19/18 05/20/18 23:59 23:59 23:59 Intake Total 2726 / 2726 2365.8 / 2365.8 1273 / 1273 Output Total 2890 / 2890 3975 / 3975 1225 / 1225 Balance -164 / -164 -1609.2 / -1609.2 48 / 48 Laboratory Tests Past 24 Hrs 05/20/18 05/20/18 06:00 06:00 WBC 8.5 RBC 3.79 L Hgb 12.1 L Hct 36.3 L MCV 95.8 H MCH 31.9 MCHC 33.3 RDW 12.2 RDW Differential 41.6 Plt Count 179 MPV 10.5 Immature Gran % (Auto) 0.200 Neut % (Auto) 72.2 H Lymph % (Auto) 14.1 L [place] % (Auto) 10.9 H Eos % (Auto) 2.4 Baso % (Auto) 0.2 Absolute Neuts (auto) 6.1 Absolute Lymphs (auto) 1.19 Total Counted Not Reportable Sodium 137 Potassium 3.3 L Chloride 101 Carbon Dioxide 29.0 Anion Gap 7 BUN 17 Creatinine 1.04 Estim Creat Clear Calc 58.54 Est GFR (MDRD) Af Amer 89 Est GFR (MDRD) Non-Af 73 BUN/Creatinine Ratio 16.3 Glucose 128 H Calcium 7.9 L Total Bilirubin 2.00 H AST 25 ALT 28 Alkaline Phosphatase 183 H Total Protein 5.6 L Albumin 2.3 L Globulin 3.3 Albumin/Globulin Ratio 0.7 L POC Glucose 05/20/18 05/20/18 05/20/18 15:12 11:52 06:20 POC Glucose 216 H 149 H 126 H 05/19/18 21:20 POC Glucose 134 H
== END 2018-05-20 18:06 | disposition home or self-care (01) | DRG 419 ==
LOC: ED 02:51 → MS3 06:06
PROVIDERS: Anesthesiology; Admitting Provider Surgery; Emergency Provider Emergency Medicine; Family Provider Family Medicine; PCP Family Medicine; Visit Provider Family Medicine
PROC: 0FT44ZZ Resection of Gallbladder, Percutaneous Endoscopic Approach (ICD-10-PCS; CPT 47610; principal; 2018-05-17 14:45)
DX: K80.00 Calculus of gallbladder with acute cholecystitis without obstruction (principal); E11.9 Type 2 diabetes mellitus without complications; I10 Essential (primary) hypertension; E78.5 Hyperlipidemia, unspecified; K82.A1 Gangrene of gallbladder in cholecystitis; Z79.84 Long term (current) use of oral hypoglycemic drugs; K82.8 Other specified diseases of gallbladder; Z87.19 Personal history of other diseases of the digestive system; Z79.899 Other long term (current) drug therapy; R09.02 Hypoxemia
CPT/HCPCS: 36415; 71045; 71046; 71275; 74174; 80048; 80053; 80076; 82962; 83036; 83690; 84484; 85025; 85027; 85379; 88304; 93005; 93306; 96361; 96374; 96375; 97802; 99282; 99284; J7030; J7040; J7120; Q9967; A4216; J1940; J2405

== ENCOUNTER → 2018-05-29 12:23 | Outpatient (CLI) | payer MEDICARE, SELFPAY ==
[2018-05-17 14:45] VITALS: BMI 23.8
== END ==
PROVIDERS: Family Provider Family Medicine; PCP Family Medicine; Visit Provider Family Medicine
DX: R30.0 Dysuria (principal)
CPT/HCPCS: 87086; 87088

== ENCOUNTER → 2019-02-05 11:22 | Outpatient (CLI) | payer MEDICARE, SELFPAY ==
[2018-05-17 14:45] VITALS: BMI 23.8
[2019-02-05 12:55] LABS: Glucose 128 mg/dL (74-106)
== END ==
PROVIDERS: Family Provider Family Medicine; PCP Family Medicine; Visit Provider Family Medicine
DX: E78.00 Pure hypercholesterolemia, unspecified (principal); I10 Essential (primary) hypertension
CPT/HCPCS: 36415; 82947

== ENCOUNTER → 2019-08-06 11:25 | Outpatient (CLI) | payer MEDICARE, SELFPAY ==
[2018-05-17 14:45] VITALS: BMI 23.8
[2019-08-06 16:36] LABS: ALB/GLOB Ratio 1.4 RATIO (0.9-2.4); AST(SGOT) 20 U/L (15-37); Alanine Aminotransfer ALT/SGPT 31 U/L (16-61); Alkaline Phosphatase 83 U/L (45-117); Anion Gap 8 (5-15); BUN 20 mg/dL (7-18); BUN/Creat Ratio 17.1 RATIO (10-20); Calcium,Total 9.1 mg/dL (8.5-10.1); Chloride 103 mmol/L (98-107); Creatinine, Serum 1.17 mg/dL (0.70-1.30); EST Glomerular Filtration Rate 64 mL/min (>60); Est Glom Filt Rate - Afr Amer 77 mL/min (>60); Globulin 2.8 g/dL (2.2-4.2); Glucose 141 mg/dL (74-106); Potassium 4.5 mmol/L (3.5-5.1); Protein, Total 6.8 g/dL (6.4-8.2); Sodium Level 136 mmol/L (136-145); Thyroid Stim Hormone (TSH) 1.56 uIU/mL (0.358-3.74)
== END ==
PROVIDERS: PCP Family Medicine; Referring Provider Family Medicine; Visit Provider Family Medicine
DX: E11.9 Type 2 diabetes mellitus without complications (principal)
CPT/HCPCS: 36415; 80053; 84443

== ENCOUNTER → 2019-09-20 12:26 | Outpatient (CLI) | payer MEDICARE, SELFPAY ==
[2018-05-17 14:45] VITALS: BMI 23.8
--- NOTE | 2019-09-20 12:29 | RAD_ITS ---
STUDY: X-RAY - ABDOMEN/PELVIS REASON FOR EXAM: Male, 79 years old. Left flank pain x 1 month, getting worse the last few days TECHNIQUE: AP supine and upright views of the abdomen and pelvis. COMPARISON: None. FINDINGS: Elevation of the right hemidiaphragm. There is an abundance of fecal material throughout the colon. There is no demonstrated free abdominal air. The visualized liver, spleen and kidneys are grossly normal in size and morphology. Normal soft tissue structures. Normal visualized osseous structures. RAD/Abd Inc Decub and/or Erect IMPRESSION: Large amount of fecal material is seen in the colon. Electronically Signed: Ash Long, at 12:58 EDT , Service support ,
[2019-09-20 15:17] LABS: Absolute Lymphocyte Count 1.43 X10^3/uL (0.83-4.51); Absolute Neutrophil Count 4.4 X10^3/uL (2.0-7.7); Basophil# 0.02 X10^3/uL; Basophil% 0.3 % (0-1); Eosinophil# 0.03 X10^3/uL; Eosinophils% 0.5 % (0-5); Hematocrit 44.8 % (40-54); Hemoglobin 14.5 g/dL (13.0-16.5); Lymphocyte # 1.43 X10^3/ul (4.0); Lymphocyte % 22.3 % (19-41); Mean Corp Hgb Conc 32.4 g/dL (32-36); Mean Corpuscular Hgb 30.9 pg (27.0-32.0); Mean Corpuscular Volume 95.5 fL (80-94); Mean Platelet Vol. 11.2 fl (6.2-12.0); Monocyte# 0.51 X10^3/uL; NRBC Flagged by Analyzer 0 % (0-5); Neutrophil # 4.39 X10^3/uL (2.7-7.7); Neutrophil % 68.4 % (47-70); Platelet Count 173 K/mm3 (150-450); RBC Distribution Width CV 12.4 % (11.6-14.6); RBC Distribution Width SD 43.5 fl (35.1-43.9); Red Blood Count 4.69 M/mm3 (4.6-6.2); White Blood Count 6.4 K/mm3 (4.4-11.0)
[2019-09-20 15:27] LABS: ALB/GLOB Ratio 1.2 RATIO (0.9-2.4); AST(SGOT) 21 U/L (15-37); Alanine Aminotransfer ALT/SGPT 32 U/L (16-61); Albumin, Serum 4.1 g/dL (3.2-5.0); Alkaline Phosphatase 85 U/L (45-117); Anion Gap 5 (5-15); BUN 20 mg/dL (7-18); BUN/Creat Ratio 17.9 RATIO (10-20); Calcium,Total 9.3 mg/dL (8.5-10.1); Chloride 106 mmol/L (98-107); Creatinine, Serum 1.12 mg/dL (0.70-1.30); EST Glomerular Filtration Rate 67 mL/min (>60); Erythrocyte Sedimentation Rate 3 mm/hr (0-20); Est Glom Filt Rate - Afr Amer 81 mL/min (>60); Globulin 3.3 g/dL (2.2-4.2); Glucose 132 mg/dL (74-106); Potassium 4.6 mmol/L (3.5-5.1); Protein, Total 7.4 g/dL (6.4-8.2); Sodium Level 138 mmol/L (136-145)
== END ==
PROVIDERS: PCP Family Medicine; Referring Provider Family Medicine; Visit Provider Family Medicine
DX: R10.9 Unspecified abdominal pain (principal)
CPT/HCPCS: 36415; 74019; 80053; 85025; 85652; 87086; 87088

== ENCOUNTER → 2019-10-26 | Outpatient (CLI) | payer MEDICARE, SELFPAY ==
[2018-05-17 14:45] VITALS: BMI 23.8
--- NOTE | 2019-10-26 10:05 | COLBX_PTH ---
PATIENT: EDEL ISAAC LOC: [facility] U#:[id number] AGE/SX: 79/M ROOM: RE10/26/[address]: Dr. Teofilo Henry MD : 1940 BED: DIS: 10/26/2019 SPEC #: [id number] RECD: 10/26/19 15:14 STATUS: NIGEL PIKE #: [id number] DAMIAN: 10/26/19 10:[address]: Teofilo Henry DEPT: SURGICAL PATHOLOGY RECD BY: Alaina Ortiz ENTERED: 10/29/19 08:34 SP TYPE: COLON BX OTHR DR: Dr. Tyree Contreras MD [facility] Tissues: Ascending colon Procedures: Surgery Specimen Level IV HEADER OPERATION: Colon with polypectomy PRE-OP DIAGNOSIS: History polyps TISSUE SUBMITTED: Sessile polyp mid ascending colon, rule out adenoma MICROSCOPIC DIAGNOSIS Sessile polyp mid ascending colon, polypectomy: Fragments of tubular adenoma. SJ:moiz 10/30/19 MICROSCOPIC DESCRIPTION Slides are reviewed. GROSS DESCRIPTION Received in fixative is one container labeled with the patient's name and designated sessile polyp mid ascending colon. The specimen consists of multiple irregular fragments of light [place] soft tissue that in aggregate measure 1 x 0.6 x 0.1 cm. The specimen is totally submitted in one cassette. / AM:moiz 10/29/19 TC:1 CPT: 34712
== END | disposition home or self-care (01) ==
LOC: LABSPEC 15:52
PROVIDERS: PCP Family Medicine; Referring Provider Internal Medicine Gastroenterology; Visit Provider Internal Medicine Gastroenterology
DX: D12.2 Benign neoplasm of ascending colon (principal); Z86.010 Personal history of colon polyps
CPT/HCPCS: 88305

== ENCOUNTER → 2020-08-18 11:18 | Outpatient (CLI) | payer MEDICARE, SELFPAY ==
[2018-05-17 14:45] VITALS: BMI 23.8
[2020-08-18 15:13] LABS: Vitamin B12 343 pg/mL (211-911)
[2020-08-18 15:33] LABS: ALB/GLOB Ratio 1.2 RATIO (0.9-2.4); AST(SGOT) 18 U/L (15-37); Alanine Aminotransfer ALT/SGPT 26 U/L (16-61); Alkaline Phosphatase 66 U/L (45-117); Anion Gap 5 (5-15); BUN 23 mg/dL (7-18); BUN/Creat Ratio 19.2 RATIO (10-20); Calcium,Total 9.1 mg/dL (8.5-10.1); Chloride 105 mmol/L (98-107); EST Glomerular Filtration Rate 62 mL/min (>60); Est Glom Filt Rate - Afr Amer 75 mL/min (>60); Globulin 3.2 g/dL (2.2-4.2); Glucose 127 mg/dL (74-106); Potassium 4.5 mmol/L (3.5-5.1); Protein, Total 7.2 g/dL (6.4-8.2); Sodium Level 137 mmol/L (136-145); Thyroid Stim Hormone (TSH) 1.92 uIU/mL (0.358-3.74)
== END ==
PROVIDERS: PCP Family Medicine; Referring Provider Family Medicine; Visit Provider Family Medicine
DX: E11.9 Type 2 diabetes mellitus without complications (principal)
CPT/HCPCS: 36415; 80053; 82607; 84443

== ENCOUNTER → 2020-10-30 | Outpatient (CLI) | payer MEDICARE, SELFPAY ==
[2018-05-17 14:45] VITALS: BMI 23.8
[2020-10-30 17:32] LABS: Bacteria 0 SEEN /hpf (None Seen); Mucous, Urine 0 SEEN /hpf (<or=2+); Red Blood Cells-Urine 0 SEEN /hpf (0-5); Squamous Epithelial Cells - UA 0 SEEN /hpf (0-5); White Blood Cells 0 SEEN /hpf (0-5)
[2020-10-30 17:58] LABS: Color, Urine Yellow (Yellow); Glucose, Dipstick 250 mg/dl (Normal); Ketone-Dipstick Negative (Negative); Leukocyte Esterase-Dipstick 25 /ul (Negative); Nitrite-Dipstick Negative (Negative); Occult Blood-Urine Negative /ul (Negative); Protein-Dipstick Negative (Negative); Urine Bilirubin Dipstick Negative (Negative); Urine Clarity Clear (Clear); Urine Urobilinogen Normal (Normal); Urine pH 6.5 (5.0 - 8.0)
== END | disposition home or self-care (01) ==
PROVIDERS: PCP Family Medicine; Referring Provider Family Medicine; Visit Provider Family Medicine
DX: R35.0 Frequency of micturition (principal)
CPT/HCPCS: 81001; 87077; 87086; 87088; 87186

== ENCOUNTER → 2021-04-02 12:51 | Outpatient (CLI) | payer MEDICARE, SELFPAY ==
--- NOTE | 2021-04-02 12:54 | VDLE_ITS ---
Reason For Study: pain Procedure LEFT This is a venous duplex using B-mode, color GSV is normal. flow and spectral Doppler. CFV is compressible, spontaneous, phasic, Exam performed in department. competent, and demonstrates normal The exam was abbreviated due to the COVID 19 augmentation. protocol. FV is compressible, spontaneous, phasic, The exam was diagnostic. competent and demonstrates normal A preliminary report was called and/or faxed augmentation. to Dr. Contreras. POP V is compressible, spontaneous, phasic, competent and demonstrates normal augmentation. T/P Trunk is compressible. PTV is compressible. LT PerV is compressible. VL/Venous Duplex US, Unilateral Interpretation Summary There is no evidence of left lower extremity deep vein thrombosis. Left great s aphenous vein appears patent and compressible segmentally. Abbreviated COVID-19 protocol utilized Ordering Physician: Gino Contreras Performed By: Donte Webber RVT
== END ==
PROVIDERS: PCP Family Medicine; Referring Provider Family Medicine; Visit Provider Family Medicine
DX: M79.662 Pain in left lower leg (principal)
CPT/HCPCS: 93971

== ENCOUNTER → 2021-09-21 | Outpatient (CLI) | payer MEDICARE, SELFPAY ==
[2021-09-21 12:48] LABS: Microalbumin,Random Urine 25.7 mg/L (NO RANGE EST.); Microalbumin:Creatinine Ratio 34.4 mg/g CRE (<30 mg/g CRE)
[2021-09-21 12:50] LABS: Vitamin B12 219 pg/mL (211-911)
[2021-09-21 13:17] LABS: ALB/GLOB Ratio 1.2 RATIO (0.9-2.4); AST(SGOT) 11 U/L (15-37); Alanine Aminotransfer ALT/SGPT 19 U/L (16-61); Albumin, Serum 3.7 g/dL (3.2-5.0); Alkaline Phosphatase 62 U/L (45-117); Anion Gap 7 (5-15); BUN 18 mg/dL (7-18); Calcium,Total 8.6 mg/dL (8.5-10.1); Chloride 103 mmol/L (98-107); Cholesterol 139 mg/dL (200); EST Glomerular Filtration Rate 62 mL/min (>60); Est Glom Filt Rate - Afr Amer 75 mL/min (>60); Globulin 3.1 g/dL (2.2-4.2); Glucose 155 mg/dL (74-106); High Density Lipoprotein 63 mg/dL; Potassium 4.4 mmol/L (3.5-5.1); Protein, Total 6.8 g/dL (6.4-8.2); Sodium Level 136 mmol/L (136-145); Thyroid Stim Hormone (TSH) 1.54 uIU/mL (0.358-3.74); Triglycerides 61 mg/dL; Very Low Density Lipoprotein 12 mg/dL (5-40)
== END | disposition home or self-care (01) ==
LOC: MFPLAB 10:42
PROVIDERS: PCP Family Medicine; Visit Provider Family Medicine
DX: E11.69 Type 2 diabetes mellitus with other specified complication (principal); E11.59 Type 2 diabetes mellitus with other circulatory complications
CPT/HCPCS: 36415; 80053; 80061; 82043; 82570; 82607; 84443

== ENCOUNTER → 2022-06-14 | Outpatient (CLI) | payer MEDICARE, SELFPAY ==
[2022-06-14 12:43] LABS: Vitamin B12 303 pg/mL (211-911)
[2022-06-14 12:51] LABS: ALB/GLOB Ratio 1.3 RATIO (0.9-2.4); AST(SGOT) 12 U/L (15-37); Alanine Aminotransfer ALT/SGPT 17 U/L (16-61); Albumin, Serum 3.8 g/dL (3.2-5.0); Alkaline Phosphatase 67 U/L (45-117); Anion Gap 5 (5-15); BUN 20 mg/dL (7-18); BUN/Creat Ratio 17.2 RATIO (10-20); Calcium,Total 8.8 mg/dL (8.5-10.1); Chloride 104 mmol/L (98-107); Creatinine, Serum 1.16 mg/dL (0.70-1.30); EST Glomerular Filtration Rate 64 mL/min (>60); Est Glom Filt Rate - Afr Amer 77 mL/min (>60); Globulin 2.9 g/dL (2.2-4.2); Glucose 169 mg/dL (74-106); Potassium 4.6 mmol/L (3.5-5.1); Protein, Total 6.7 g/dL (6.4-8.2); Sodium Level 139 mmol/L (136-145); Thyroid Stim Hormone (TSH) 1.41 uIU/mL (0.358-3.74)
== END | disposition home or self-care (01) ==
LOC: MFPLAB 11:19
PROVIDERS: PCP Family Medicine; Visit Provider Family Medicine
DX: E11.9 Type 2 diabetes mellitus without complications (principal); E53.8 Deficiency of other specified B group vitamins
CPT/HCPCS: 36415; 80053; 82043; 82607; 84403; 84443

== ENCOUNTER → 2022-09-10 | Outpatient (CLI) | payer MEDICARE, SELFPAY ==
--- NOTE | 2022-09-10 13:59 | VDLE_ITS ---
Reason For Study: LEG SWELLING RIGHT LEFT GSV is normal. GSV is normal. CFV is compressible, spontaneous, phasic, CFV is compressible, spontaneous, phasic, competent and demonstrates normal competent, and demonstrates normal augmentation. augmentation. FV is compressible, spontaneous, phasic, FV is compressible, spontaneous, phasic, competent and demonstrates normal competent and demonstrates normal augmentation. augmentation. POP V is compressible, spontaneous, phasic, POP V is compressible, spontaneous, phasic, competent and demonstrates normal competent and demonstrates normal augmentation. augmentation. T/P Trunk is compressible. T/P Trunk is compressible. PTV is compressible. PTV is compressible. RT PerV is compressible. LT PerV is compressible. Procedure This is a venous duplex using B-mode, color flow and spectral Doppler. Exam performed in department. The exam was diagnostic. A preliminary report was called and/or faxed to Dr. Rosa's office. VL/Venous Duplex US - Bipin Extrem Interpretation Summary Deep veins of the lower extremities are bilaterally patent and compressible seg mentally. There is no evidence of deep vein thrombosis on either side. Valvular competence appears in tact within the proximal deep venous systems bilaterally. The great saphenous veins appear bila terally patent and compressible segmentally. Ordering Physician: Jayy Rosa Referring Physician: Tyree Contreras MD Performed By: Silas Santo, RVT
== END | disposition home or self-care (01) ==
LOC: CVS 13:57
PROVIDERS: PCP Family Medicine; Visit Provider Internal Medicine Hematology & Oncology
DX: C18.2 Malignant neoplasm of ascending colon (principal); M79.89 Other specified soft tissue disorders
CPT/HCPCS: 93970

== ENCOUNTER → 2023-10-11 | Outpatient (CLI) | payer MEDICARE, SELFPAY ==
[2023-10-11 16:14] LABS: Vitamin B12 247 pg/mL (211-911)
[2023-10-11 16:28] LABS: ALB/GLOB Ratio 1.2 RATIO (0.9-2.4); AST(SGOT) 19 U/L (15-37); Alanine Aminotransfer ALT/SGPT 21 U/L (16-61); Alkaline Phosphatase 63 U/L (45-117); Anion Gap 8 (5-15); BUN 23 mg/dL (7-18); BUN/Creat Ratio 18.5 RATIO (10-20); Calcium,Total 9.5 mg/dL (8.5-10.1); Chloride 104 mmol/L (98-107); Cholesterol 142 mg/dL (200); Creatinine, Serum 1.24 mg/dL (0.70-1.30); EST Glomerular Filtration Rate 59 mL/min (>60); Est Glom Filt Rate - Afr Amer 72 mL/min (>60); Globulin 3.3 g/dL (2.2-4.2); Glucose 147 mg/dL (74-106); High Density Lipoprotein 67 mg/dL; Potassium 4.5 mmol/L (3.5-5.1); Protein, Total 7.3 g/dL (6.4-8.2); Sodium Level 137 mmol/L (136-145); Thyroid Stim Hormone (TSH) 1.09 uIU/mL (0.358-3.74); Triglycerides 69 mg/dL; Very Low Density Lipoprotein 14 mg/dL (5-40)
== END | disposition home or self-care (01) ==
LOC: MFPLAB 11:27
PROVIDERS: PCP Family Medicine; Visit Provider Family Medicine
DX: E11.9 Type 2 diabetes mellitus without complications (principal)
CPT/HCPCS: 36415; 80053; 80061; 82607; 84403; 84443

== ENCOUNTER → 2024-08-21 | Outpatient (CLI) | payer MEDICARE, SELFPAY ==
--- NOTE | 2024-08-21 13:03 | RAD_ITS ---
PROCEDURE: ABD INC DECUB AND/OR ERECT 08/21/2024 REASON FOR EXAM: LLQ PAIN TECHNIQUE: Single view abdomen. 2 upright and 2 supine views to include the entire abdomen and pelvis, 4 total images FINDINGS: No free air identified. Surgical staple lines at the visualized lower right chest/hilum. No gaseous distention of bowel. Gas and stool seen within the colon. Surgical staple line right abdomen. RAD/Abd Inc Decub and/or Erect IMPRESSION: No gaseous distention of bowel or free air identified. Postsurgical changes. Reading Location: [id number]
[2024-08-21 15:39] LABS: Absolute Neutrophil Count 4.5 X10^3/uL (2.0-7.7); Basophil# 0.04 X10^3/uL; Basophil% 0.6 % (0-1); Eosinophil# 0.08 X10^3/uL; Eosinophils% 1.3 % (0-5); Hematocrit 37.5 % (40-54); Hemoglobin 12.3 g/dL (13.0-16.5); Lymphocyte % 17.4 % (19-41); Mean Corp Hgb Conc 32.8 g/dL (32-36); Mean Corpuscular Hgb 32.4 pg (27.0-32.0); Mean Corpuscular Volume 98.7 fL (80-94); Mean Platelet Vol. 11.7 fl (6.2-12.0); Monocyte# 0.51 X10^3/uL; Monocyte% 8.1 % (0-10); NRBC Flagged by Analyzer 0 % (0-5); Neutrophil # 4.54 X10^3/uL (2.7-7.7); Platelet Count 190 K/mm3 (150-450); RBC Distribution Width CV 13.8 % (11.6-14.6); RBC Distribution Width SD 50.1 fl (35.1-43.9); White Blood Count 6.3 K/mm3 (4.4-11.0)
[2024-08-21 17:32] LABS: ALB/GLOB Ratio 1.7 RATIO (0.9-2.4); AST(SGOT) 16 U/L (<=37); Alanine Aminotransfer ALT/SGPT 11 U/L (<=46); Albumin, Serum 4.4 g/dL (3.4-4.8); Alkaline Phosphatase 68 U/L (40-129); Anion Gap 11 (5-15); BUN 17 mg/dL (4-19); Calcium,Total 9.5 mg/dL (7.6-11.0); Carbon Dioxide 23.7 mmol/L (21.0-32.0); Chloride 104 mmol/L (98-108); Creatinine, Serum 1.15 mg/dL (0.70-1.20); EST Glomerular Filtration Rate 63 (>60); Globulin 2.6 g/dL (2.2-4.2); Glucose 177 mg/dL (70-99); Potassium 5.2 mmol/L (3.3-5.1); Sodium Level 138 mmol/L (133-145); Total Bilirubin 0.75 mg/dL (0.00-1.30)
== END | disposition home or self-care (01) ==
LOC: MTRAD 13:02
PROVIDERS: PCP Family Medicine; Referring Provider Family Medicine; Visit Provider Family Medicine
DX: R10.32 Left lower quadrant pain (principal)
CPT/HCPCS: 36415; 74019; 80053; 85025; 87086

== ENCOUNTER → 2024-12-05 | Outpatient (CLI) | payer MEDICARE, SELFPAY | END | disposition home or self-care (01) | LOC: LAB.FUTURE 14:54 | PROVIDERS: PCP Family Medicine; Referring Provider Family Medicine; Visit Provider Family Medicine | DX: E11.9 Type 2 diabetes mellitus without complications (principal) ==

== ENCOUNTER → 2024-12-06 | Outpatient (CLI) | payer MEDICARE, SELFPAY ==
[2024-12-06 13:10] LABS: Anion Gap 11 (5-15); BUN 20 mg/dL (4-19); BUN/Creat Ratio 15.4 RATIO (10-20); Calcium,Total 9.5 mg/dL (7.6-11.0); Carbon Dioxide 23.9 mmol/L (21.0-32.0); Chloride 101 mmol/L (98-108); Cholesterol 130 mg/dL (<=200); Glucose 166 mg/dL (70-99); Low Density Lipoprotein Calc. 35 mg/dL; Potassium 4.7 mmol/L (3.3-5.1); Triglycerides 86 mg/dL; Very Low Density Lipoprotein 17 mg/dL (5-40); cholesterol:hdl ratio screen 1.67
== END | disposition home or self-care (01) ==
LOC: MFPLAB 10:03
PROVIDERS: PCP Family Medicine; Referring Provider Family Medicine; Visit Provider Family Medicine
DX: E11.9 Type 2 diabetes mellitus without complications (principal)
CPT/HCPCS: 36415; 80048; 80061; 84403; 84443

== ENCOUNTER → 2025-03-11 | Outpatient (CLI) | payer MEDICARE, SELFPAY | END | disposition home or self-care (01) | LOC: LABSPEC 13:49 | PROVIDERS: PCP Family Medicine; Visit Provider Family Medicine | DX: R10.9 Unspecified abdominal pain (principal) | CPT/HCPCS: 87086; 87088 ==